=== PATIENT | male | born 1950 | race Caucasian/White ===

== ENCOUNTER 2024-12-22 09:45 | Outpatient (AMB) | payer MEDICARE, OTHER, SELFPAY ==
--- NOTE | 2024-12-22 09:49 | HO.NEPHOV_ITS ---
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 He has H/O IgA multiple myeloma and had treatment for it in [place]( trials X 2), which he has finished last year. He had follow up BMB and had been declared to be in remission. During the treatment in [place], he also had pneumonia with intra renal hemodynamic changes. He was thought to have vascular disease with narrowing of both carotid arteries.He also had episodes of AFib and has seen freight manager who felt he has CAD. His Hydration Plant Operator Dr Ambrose had initiated him on ACEI which he had been taking until recently when he developed hyperkalemia. He never had renal biopsy even when his light chains were high prior to initiation of his chemotherapeutic medication regimen couple of years ago. He does not take excess NSAID's. He has H/O hypertension and is on medications which is keeping his BP at goal. He has no hematuria, edema, dysuria , orthostatic symptoms. He denies SOB, PND, orthopnea, new skin rashes. His recent serum creatinine has been around 1.35 PFSH Medical History (Updated 12/22/24 @ 09:55 by Ben Ybarra MD) Sinusitis Rising PSA level Multiple myeloma Intercostal pain Hypertension Hyperlipidemia H/O diarrhea Great toe pain Atherosclerosis of both carotid arteries Surgical History (Updated 12/22/24 @ 09:54 by Ramona Franz MA) History of lung biopsy H/O colonoscopy Family History (Updated 12/22/24 @ 09:55 by Ramona Franz MA) Mother Diabetes Kidney disease Heart disease Brother Colon cancer Social History (Updated 12/22/24 @ 09:52 by Ramona Franz MA) Alcohol intake: current Patient Tobacco Use Status: Former Tobacco user Review of Systems Const All systems reviewed & are unremarkable except as noted in HPI and below Physical Exam Vital Signs: Last Vital Signs Pulse 47 L 12/22/24 09:57 BP 140/66 H 12/22/24 09:57 Pulse Ox 98 12/22/24 09:57 Oxygen Delivery Method Room Air 12/22/24 09:57 BMI result Body Mass Index 24.7 Const General: comfortable and no acute distress Orientation/consciousness: patient oriented x3 HEENT Head: Yes normocephalic Mouth: Normal oral and palatal mucosa present Eyes EOM: EOMs intact bilaterally Neck Neck: Yes supple Resp Auscultation: clear to auscultation bilaterally Cardio Jugular venous distension: no JVD Rate: regular rate GI Palpation (GI): Soft to palpation Auscultation: normal bowel sounds General: Yes no CVA tenderness Back/Spine/Pelvis Back: no CVA tenderness Skin General skin exam: no rashes or lesions noted Neuro General: patient oriented x3 and moves all extremities Extrem General: Yes no pedal edema Results Reviewed Nephrology Results: No Data to Display Assessment & Plan Assessment & Plan (1) CKD stage 3a, GFR 45-59 ml/min: Code(s): N18.31 - Chronic kidney disease, stage 3a Category: Medical (2) Hypertension: Code(s): I10 - Essential (primary) hypertension Category: Medical Qualifiers: Hypertension type: primary hypertension Qualified Code(s): I10 - Essential (primary) hypertension Plan Adal has CKD likely from multifactorial etiology. He has vascular disease with hypertension. 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 He was on ACEI but has been on hold due to high K( on hold since 10/13/24. His recent serum K is normal.) His PPI has been on hold since one week. He sparsely uses NSAID's and maintain good hydration. He has no CAD, CVA, CHF or PAD. I shall do Doppler of renal arteries. Last year he had SANTY with creatinine going up to 1.79 which has improved now( he had pneumonia- was on antibiotics & anti fungals)- he might have lost some GFR at that time. He does not take excess NSAID's and maintain good hydration. I have ordered F/U labs including cr clearance.His BP is well controlled on metoprolol and Amlodipine. He will benefit from SGLT2 i which I may consider initiating at the next follow up. Time spent reviewing [facility] records as well as other records, encounter and documentation included 70 minutes. Answered all questions. Orders: Orders Creatinine 6 Months I10 - Essential (primary) hypertension, N18.31 - Chronic kidney disease, stage 3a Electrolytes 6 Months I10 - Essential (primary) hypertension, N18.31 - Chronic kidney disease, stage 3a Creatinine Clearance Urine 24U 6 Months I10 - Essential (primary) hypertension, N18.31 - Chronic kidney disease, stage 3a Calcium 6 Months I10 - Essential (primary) hypertension, N18.31 - Chronic kidney disease, stage 3a Immunofixation, Random Urine 6 Months I10 - Essential (primary) hypertension, N18.31 - Chronic kidney disease, stage 3a Blood Urea Nitrogen 6 Months I10 - Essential (primary) hypertension, N18.31 - Chronic kidney disease, stage 3a Coding Level of Care Code New Pt Level 5 (27585) Diagnoses CKD stage 3a, GFR 45-59 ml/min N18.31 Primary hypertension I10 Hypertension type: primary hypertension
[2024-12-22 09:57] VITALS: BP 140/66; PULSE 47; O2SAT 98; BMI 24.7
== END 2024-12-22 10:44 | disposition home or self-care (01) ==
LOC: HO.HKAS 09:45
PROVIDERS: PCP Family Medicine; Referring Provider Family Medicine; Visit Provider Internal Medicine Nephrology
DX: I12.9 Hypertensive chronic kidney disease with stage 1 through stage 4 chronic kidney disease, or unspecified chronic kidney disease (principal); N18.31 Chronic kidney disease, stage 3a
CPT/HCPCS: 99205

== ENCOUNTER → 2024-12-22 09:45 | Outpatient (BNVA) | payer MEDICARE, OTHER, SELFPAY | PROVIDERS: PCP Family Medicine; Referring Provider Family Medicine; Visit Provider Internal Medicine Nephrology | DX: I12.9 Hypertensive chronic kidney disease with stage 1 through stage 4 chronic kidney disease, or unspecified chronic kidney disease (principal); N18.31 Chronic kidney disease, stage 3a | CPT/HCPCS: 99202 ==

== ENCOUNTER 2025-07-17 09:21 | Outpatient (REF) | payer MEDICARE, OTHER, SELFPAY ==
--- OUTSIDE RECORDS SUMMARY | 2025-07-17 09:28 | XMS_ITS | Encounter Summary ---
Author Organization [facility] Address [address] [place] [address] [place] [address] Phone Care Team Providers Care Oil Lease Operator Name Role Phone Christie Downing MD Unavailable [phone] Elham Jaimes RN Unavailable [email or web address] [email or web address] Mariann Morris RN Unavailable [phone] Julianne Bunn RN Unavailable [phone] Jeb Velázquez DO Primary Care Provider Cristin Ramsey RN Unavailable [phone] Elham Boyce RN Unavailable Lionel [email or web address] Meghan Díaz RN Unavailable [email or web address] [email or web address] Марина Maxwell RN Unavailable Magaly [email or web address] Encounter Details Date Type Department Care Team (Late st Contact Info) Description 02/16/2024 Procedure Pass [facility] [address] [place] [address] Social History Tobacco Use Types Packs/Day Years Used Date Smoking Tobacco: Never Smokeless Tobacco: Never Education Answer Date Recorded Are you interested in more education? Not on betty e 01/30/2023 Are you concerned about learning? Not on file 01/30/2023 No 01/30/2023 No 01/30/2023 Food Answer Date Recorded Within the past 6 months we worried whether our food would run out before we got money to buy more. Never True 02/12/2024 Within the past 6 months the food we bought just didn't last and we didn't have enough money to get more. Never True Residential Stability Answer Date Recor ded What is your housing situation today? I have ayesha montalvo 02/12/2024 How many times have you move d in the past 12 months? Zero (I did not move) 02/12/2024 Paying for Meds Answer Date Recorded Do you have trouble paying for medicines? No 02/12/2024 Paying Utility Bills Answer Date Record ed Do you have trouble paying your heating or elect ricity bill? No 02/12/2024 Transportation Answer Date Recorded Has the lack of transportati on kept you from medical appointments or from getting medications? No 02/12/2024 Digital Access Answer Date Recorded No 02/12/2024 Yes 02/12/2024 Do you have reliable internet access at home? Ye s 02/12/2024 Do you have a device (e.g., phone, tablet, computer) with a working camera? Yes 02/12/2024 Intimate Partner Violence Answer Date R ecorded Are you denied basic needs s uch as food, clothing, or medical care? No 02/11/2024 In the past 12 months have y ou been in a relationship with a person who hurts, threatens, or tries to control you? No 02/11/2024 Are you denied basic needs s uch as food, clothing, or medical care? No 02/11/2024 In the past 12 months have y ou been in a relationship with a person who hurts, threatens, or tries to control you? No 02/11/2024 Sex and Gender Information Value Date Recorded Sex Assigned at Male 11/12/2019 4:46 PM EST Legal Sex Male 10:15 AM EDT Gender Identity Male 11/12/2019 4:46 PM EST Sexual Orientation Straight 11/12/2019 4: 47 PM EST documented as of this encounter Plan of Treatment Upcoming Encounters Date Type Department Care Team (Late st Contact Info) Description 09/13/2025 9:00 AM EST Blood Draw Laboratory Services, [facility] [place] [address] [facility], 2nd [place] [address] Christie Downing MD [address] [place] [phone] [email or web address] [facility] 09/13/2025 10:00 AM EST Office Visit [facility] [address] [place] [phone] Jessica Alcantara PA-C [address] [place] [phone] 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 02/11/2024 02/10/2025 1:21 AM EDT CDiff-Risk 02/15/2024 02/15/2024 02/16/2024 9:02 AM EDT CDiff-Risk 02/17/2024 02/17/2024 02/18/2024 9:58 AM EDT CDiff-Risk 02/20/2024 02/20/2024 02/21/2024 9:53 AM EDT documented as of this encounter Care Teams Oil Lease Operator Relationship Specialty Start Date End Date Jeb Velázquez DO [address] [facility] [place] [address] PCP - General Family Medicine 04/22/23 Christie Downing MD [address] [place] [address] [email or web address] Primary Oncologist Medical Oncology 06/29/18 Elham Jaimes, RN [address] [place] [phone] [email or web address] Associate Infusion Nurse 08/12/22 Mariann Morris, KWAME [address] [place] [address] [email or web address] Research RN 12/09/22 Julianne Bunn, KWAME [address] [place] [address] [email or web address] Research RN 01/26/23 Cristin Ramsey RN [address] [place] [phone] [email or web address] Primary Infusion Nurse 12/16/23 Elham Boyce, KWAME [address] [place] [phone] [email or web address] Primary Infusion Nurse 06/26/24 Meghan Díaz, KWAME [address] [place] [address] [email or web address] Associate Infusion Nurse 06/26/24 Марина Maxwell, RN [address] [place] [phone] [email or web address] Associate Infusion Nurse 06/26/24 documented as of this encounter Additional Source Comments The information contained in this document represents components of the legal health record. It is not the complete legal health record.[facility]
--- OUTSIDE RECORDS SUMMARY | 2025-07-17 09:28 | XMS_ITS | Encounter Summary ---
Author Organization [facility] Address [address] [place] [address] [place] [phone] Phone Care Team Providers Care Radiographer Technologist Name Role Phone Christie Downing MD Unavailable [phone] Elham Jaimes RN Unavailable Fazal [email or web address] Mariann Morris RN Unavailable [phone] Julianne Bunn RN Unavailable [phone] Jeb Velázquez DO Primary Care Provider Cristin Ramsey RN Unavailable [phone] Elham Boyce RN Unavailable Lionel [email or web address] Meghan Díaz RN Unavailable ananda_[email or web address] [email or web address] Марина Maxwell RN Unavailable Magaly [email or web address] Encounter Details Date Type Department Care Team (Late st Contact Info) Description 02/16/2024 Procedure Pass [facility] Endoscopy Department [address] [place] [address] Social History Tobacco Use Types Packs/Day Years [...] EST Blood Draw Laboratory Services, [facility] [place] [address] [place] [address], 2nd [place] [address] Christie Downing MD [address] [place] [phone] [email or web address]. [facility] 09/13/2025 10:00 AM EST Office Visit [facility] [address] [place] [phone] Jessica Alcantara PA-C [address] [place] [address] [place] [address] Leela@[email or web address]. 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 02/11/2024 02/10/2025 1:21 AM EDT CDiff-Risk 02/15/2024 02/15/2024 02/16/2024 9:02 AM EDT CDiff-Risk 02/17/2024 02/17/2024 02/18/2024 9:58 AM EDT CDiff-Risk 02/20/2024 02/20/2024 02/21/2024 9:53 AM EDT documented as of this encounter Care Teams Radiographer Technologist Relationship Specialty Start Date End Date Jeb Velázquez DO 24 [facility] [place] [address] PCP - General Family Medicine 04/22/23 Christie Downing MD [address] [place] [phone] [email or web address] Primary Oncologist Medical Oncology 06/29/18 Elham Jaimes, RN [address] [place] [address] [email or web address] Associate Infusion Nurse 08/12/22 Mariann Morris, RN [address] [place] [address] [email or web address] Research RN 12/09/22 Julianne Bunn, KWAME [address] [place] [phone] [email or web address] Research RN 01/26/23 Cristin Ramsey RN [address] [place] [address] MANA@[email or web address] Primary Infusion Nurse 12/16/23 Elham Boyce, KWAME [address] [place] [phone] [email or web address] Primary Infusion Nurse 06/26/24 Meghan Díaz, KWAME [address] [place] [address] [email or web address] Associate Infusion Nurse 06/26/24 Марина Maxwell, RN [address] [place] [phone] [email or web address] Associate Infusion Nurse 06/26/24 documented as of this encounter Additional Source Comments The information contained in this document represents components of the legal health record. It is not the complete legal health record.[facility]
--- OUTSIDE RECORDS SUMMARY | 2025-07-17 09:28 | XMS_ITS | Encounter Summary ---
Author Organization [facility] Address [address] [place] [address] [place] [address] Phone Care Team Providers Care Screw Machine Hand Name Role Phone Christie Downing MD Unavailable [phone] Elham Jaimes RN Unavailable Fazal [email or web address] Mariann Morris RN Unavailable [phone] Julianne Bunn RN Unavailable [phone] Jeb Velázquez DO Primary Care Provider Cristin Ramsey RN Unavailable [phone] Elham Boyce RN Unavailable Lionel [email or web address] Meghan Díaz RN Unavailable ananda_[email or web address] [email or web address] Марина Maxwell RN Unavailable Magaly [email or web address] Encounter Details Date Type Department Care Team (Late st Contact Info) Description 02/09/2024 Procedure Pass [facility] [address] [place] [address] Social History Tobacco Use Types Packs/Day Years [...] PM EST documented as of this encounter Functional Status * Calculated C-SSRS Risk Score (Lifetime/Recent) Answer Date of Assessment Author No Risk Indicated 02/11/2024 10:29 PM EDT Hawa Saxena RN * Kane Suicide Severity Rating Scale (Screener/Recent Self-Report) Question Answer Date of Assessment Author 1. Wish to be (Past 1 Month) No 024 10:29 PM Hawa Luque RN 2. Non-Specific Active Suici emil Thoughts (Past 1 Month) No 02/11/2024 10:29 PM EDT Yolis Saxena RN 3. Active Suicidal Ideation with any Methods (Not Plan) Without Intent to Act (Past 1 Month) No 02/11/2024 10:29 PM Hawa Luque RN 4. Active Suicidal Ideation with Some Intent to Act, Without Specific Plan (Past 1 Month) No 02/11/2024 10:29 PM Hawa Luque RN 5. Active Suicidal Ideation with Specific Plan and Intent (Past 1 Month) No 02/11/2024 10:29 PM Hawa Luque RN 6. Suicidal Behavior (Lifetime) No 10:29 PM Hawa Luque RN documented as of this encounter Plan of Treatment Upcoming Encounters Date Type Department Care Team (Late st Contact Info) Description 09/13/2025 9:00 AM EST Blood Draw Laboratory Services, [address] 2[address] [place] [address] Christie Downing MD [address] [place] [phone] [email or web address] 09/13/2025 10:00 AM EST Office Visit [facility] [address] [place] [phone] Jessica Alcantara PA-C [address] [place] [phone] Leela@[email or web address]. [facility] 09/19/2025 1:20 PM EST Office Visit [facility] Internal Medicine [address] [place] [address] Stromy Allred PA-C [address] [place] [address] [email or web address] documented as of this encounter Visit Diagnoses Not on filedocumented in this encounter Additional Health Concerns Infection Onset Date Last Indicated Resolved Time CoV-Risk Comment:Per note documentation 02/09/2024 02/09/2024 9:10 AM EDT CDiff-Risk 02/10/2024 02/10/2024 02/10/2024 12:3 3 PM EDT VRE 02/11/2024 02/11/2024 02/10/2025 1:21 AM EDT CDiff-Risk 02/15/2024 02/15/2024 02/16/2024 9:02 AM EDT CDiff-Risk 02/17/2024 02/17/2024 02/18/2024 9:58 AM EDT CDiff-Risk 02/20/2024 02/20/2024 02/21/2024 9:53 AM EDT documented as of this encounter Care Teams Screw Machine Hand Relationship Specialty Start Date End Date Jeb Velázquez DO 24 [facility] [place] [address] PCP - General Family Medicine 04/22/23 Christie Downing MD [address] [place] [phone] [email or web address] Primary Oncologist Medical Oncology 06/29/18 Elham Jaimes RN [address] [place] [address] [email or web address]. [facility] Associate Infusion Nurse 08/12/22 Mariann Morris RN [address] [place] [address] [email or web address] Research RN 12/09/22 Julianne Bunn RN [address] [place] [address] [email or web address] Research RN 01/26/23 Cristin Ramsey RN [address] [place] [phone] [email or web address] Primary Infusion Nurse 12/16/23 Elham Boyce, KWAME [address] [place] [phone] [email or web address] Primary Infusion Nurse 06/26/24 Meghan Díaz, KWAME [address] [place] [address] [email or web address] Associate Infusion Nurse 06/26/24 Марина Maxwell, KWAME [address] [place] [phone] [email or web address] Associate Infusion Nurse 06/26/24 documented as of this encounter Additional Source Comments The information contained in this document represents components of the legal health record. It is not the complete legal health record.[facility]
--- OUTSIDE RECORDS SUMMARY | 2025-07-17 09:28 | XMS_ITS | Encounter Summary ---
Author Organization [facility] Address [address] [place] [address] [place] [address] Phone Care Team Providers Care Grief Counselor Name Role Phone Christie Downing MD Unavailable [phone] Elham Jaimes RN Unavailable Fazal [email or web address].[place].[facility] Mariann Morris RN Unavailable [phone] Julianne Bunn RN Unavailable [phone] Jeb Velázquez DO Primary Care Provider Cristin Ramsey RN Unavailable [phone] Elham Boyce RN Unavailable Lionel [email or web address].[facility] Meghan Díaz RN Unavailable ananda_archie [email or web address]@[email or web address].[facility] Марина Maxwell RN Unavailable Magaly [email or web address].[facility] Encounter Details Date Type Department Care Team (Late st Contact Info) Description 02/11/[address] [facility] Cross Sectional Interventional Radiology [address] [place] [address] Social History Tobacco Use Types Packs/Day Years [...] 10:29 PM EDT Hawa Saxena RN * [place] Suicide Severity Rating Scale (Screener/Recent Self-Report) Question Answer Date of Assessment Author 1. Wish to be (Past 1 Month) No 024 10:29 PM EDHawa Moreno RN 2. Non-Specific Active Suici emil Thoughts [...] 9:00 AM EST Blood Draw Laboratory Services, [address], 2nd [place] [address] Christie Downing MD [address] [place] [address] Mirtha@[email or web address]. [facility] 09/13/2025 10:00 AM EST Office Visit [facility] Cancers [address] [place] [phone] Jessica Alcantara PA-C [address] [place] [address] Leela@[facility] 09/19/2025 1:20 PM EST Office Visit [facility] Internal Medicine 40 [place] [address] Stormy Allred PA-C 40 [place] [address] [email or web address] documented as of this encounter Visit Diagnoses Not on filedocumented in this encounter Additional Health Concerns Infection Onset Date Last Indicated Resolved Time CoV-Risk Comment:Per note documentation 02/09/2024 02/09/2024 9:10 AM EDT VRE 02/11/2024 02/11/2024 02/10/2025 1:21 AM EDT CDiff-Risk 02/15/2024 02/15/2024 02/16/2024 9:02 AM EDT CDiff-Risk 02/17/2024 02/17/2024 02/18/2024 9:58 AM EDT CDiff-Risk 02/20/2024 02/20/2024 02/21/2024 9:53 AM EDT documented as of this encounter Care Teams Grief Counselor Relationship Specialty Start Date End Date Jeb Velázquez DO 24 [facility] [place] [address] PCP - General Family Medicine 04/22/23 Christie Downing MD [address] [place] [address] [email or web address] Primary Oncologist Medical Oncology 06/29/18 Elham Jaimes RN [address] [place] [address] Faviola@[facility]. [facility] Associate Infusion Nurse 08/12/22 Mariann Morris, KWAME [address] [place] [address] Ruddy@[email or web address] Research RN 12/09/22 Julianne Bunn, KWAME [address] [place] [address] Mame@[facility] Research RN 01/26/23 Cristin Ramsey RN [address] [place] [address] [email or web address]@[facility] Primary Infusion Nurse 12/16/23 Elham Boyce, KWAME [address] [place] [address] Steve@[email or web address] Primary Infusion Nurse 06/26/24 Meghan Díaz RN [address] [place] [address] [email or web address] Associate Infusion Nurse 06/26/24 Марина Maxwell, KWAME [address] [place] [address] Liss@[email or web address] Associate Infusion Nurse 06/26/24 documented as of this encounter Additional Source Comments The information contained in this document represents components of the legal health record. It is not the complete legal health record.[facility]
--- OUTSIDE RECORDS SUMMARY | 2025-07-17 09:28 | XMS_ITS | Encounter Summary ---
Author Organization [facility] Address [address] [place] [address] [place] [address] Phone Care Team Providers Care Power Originator Name Role Phone Christie Downing MD Unavailable [phone] Elham Jaimes RN Unavailable Fazal [email or web address].[facility] Mariann Morris RN Unavailable [phone] Julianne Bunn RN Unavailable [phone] Jeb Velázquez DO Primary Care Provider Cristin Ramsey RN Unavailable Elham Boyce RN Unavailable Lionel [email or web address].[facility] Meghan Díaz RN Unavailable ananda_archie [email or web address].[facility] Марина Maxwell RN Unavailable Magaly [email or web address] Encounter Details Date Type Department Care Team (Late st Contact Info) Description 02/09/2024 Procedure Pass [facility] 75 [place] [address] Social History Tobacco Use Types Packs/Day Years [...] 10:29 PM EDT Hawa Saxena RN * [place] Suicide Severity Rating Scale (Screener/Recent Self-Report) Question [...] 9:00 AM EST Blood Draw Laboratory Services, [address], 2nd [place] [address] Christie Downing MD [address] [place] [address] Mirtha@[email or web address]. [facility] 09/13/2025 10:00 AM EST Office Visit [facility] Cancers [address] [place] [phone] Jessica Alcantara PA-C [address] [place] [address] Leela@[facility]. [facility] 09/19/2025 1:20 PM EST Office Visit [facility] Internal Medicine 40 [place] [address] Stormy Allred PA-C 40 [place] [address] [email or web address] documented as of this encounter [...] documented as of this encounter Care Teams Power Originator Relationship Specialty Start Date End Date Jeb Velázquez DO 24 [facility] [place] [address] PCP - General Family Medicine 04/22/23 Christie Downing MD [address] [place] [address] Mirtha@[email or web address] Primary Oncologist Medical Oncology 06/29/18 Elham Jaimes RN [address] [place] [address] Faviola@[facility]. [facility] Associate Infusion Nurse 08/12/22 Mariann Morris RN 44 [place] [address] Ruddy@[facility] Research RN 12/09/22 Julianne Bunn RN 50 [place] [address] Mame@[facility] .[facility] Research RN 01/26/23 Cristin Ramsey RN [address] [place] [address] VANTATA@[email or web address] Primary Infusion Nurse 12/16/23 Elham Boyce, KWAME [address] [place] [address] Steve@[facility] Primary Infusion Nurse 06/26/24 Meghan Díaz, KWAME [address] [place] [address] [email or web address]@[email or web address] Associate Infusion Nurse 06/26/24 Марина Maxwell, KWAME [address] [place] [address] Liss@[facility] Associate Infusion Nurse 06/26/24 documented as of this encounter Additional Source Comments The information contained in this document represents components of the legal health record. It is not the complete legal health record.[facility]
--- OUTSIDE RECORDS SUMMARY | 2025-07-17 09:28 | XMS_ITS | Encounter Summary ---
Author Organization [facility] Address [address] [address] Phone Care Team Providers Care Naval Architect Specialist Name Role Phone Jeb Velázquez DO Primary Care Provider Christie Downing MD Unavailable [phone] Felipa Esqueda Unavailable [phone] Silvana Barton RN Unavailable [email or web address] Elham Jaimes RN Unavailable Fazal [email or web address] Marainn Morris RN Unavailable [phone] Julianne Bunn RN Unavailable [phone] Jeb Velázquez DO Primary Care Provider Cristin Ramsey RN Unavailable [phone] Elham Boyce RN Unavailable Lionel [email or web address] Meghan Díaz RN Unavailable ananda_archie [email or web address] Марина Maxwell RN Unavailable Magaly [email or web address].[facility] Encounter Details Date Type Department Care Team (Late st Contact Info) Description 12/16/2022 Documentation [facility] of Progression of Blood Cancers, [facility] [address] [place] [address], 7th [place] [address] Mariann Morris, RN [address] [place] [address] Ruddy@[email or web address] Social History Tobacco Use Types Packs/Day Years Used Date Smoking Tobacco: Never Smokeless Tobacco: Never Sex and Gender Information Value Date Recorded [...] 9:00 AM EST Blood Draw Laboratory Services, [address], 2nd [place] [address] Christie Downing MD [address] [place] [address] Mirtha@[email or web address]. [facility] 09/13/2025 10:00 AM EST Office Visit [facility] Cancers [address] [place] [phone] Jessica Alcantara PA-C [address] [place] [address] Leela@[facility]. [facility] 09/19/2025 1:20 PM EST Office Visit [facility] [place] Internal Medicine 40 [place] [address] Stormy Allred PA-C 40 [place] [address] [email or web address] documented as of this encounter Visit Diagnoses Not on filedocumented in this encounter Additional Health Concerns Infection Onset Date Last Indicated Resolved Time COVID-19 Comment:Sx onset 06/25/23 Test 9/26/06/25/2023 06/30/2023 07/15/2023 1:23 AM E DT CoV-Presumed Comment:New sx onset= 07/22 with COVID Ag + 07/27. 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 02/11/2024 02/10/2025 1:21 AM EDT CDiff-Risk 02/15/2024 02/15/2024 02/16/2024 9:02 AM EDT CDiff-Risk 02/17/2024 02/17/2024 02/18/2024 9:58 AM EDT CDiff-Risk 02/20/2024 02/20/2024 02/21/2024 9:5 3 AM EDT documented as of this encounter Care Teams Naval Architect Specialist Relationship Specialty Start Date End Date Jeb Velázquez DO 24 No [facility] [place] [address] PCP - General Family Medicine 06/29/18 04/21/23 Jeb Velázquez DO 24 No [facility] [place] [address] PCP - General Family Medicine 04/22/23 Christie Downing MD [address] [place] [address] [email or web address] Primary Oncologist Medical Oncology 06/29/18 Felipa Esqueda, [facility] [address] [place] [address] Jesse@[facility] Chain Saw Operator Hematology and Oncology 11/29/19 12/27/23 Silvana Barton, RN [address] [place] [address] AVIS@[email or web address] Primary Infusion Nurse 08/04/22 02/07/24 Elham Jaimes, KWAME [address] [place] [address] Faviola@[facility] Associate Infusion Nurse 08/12/22 Mariann Morris, KWAME [address] [place] [address] Ruddy@[facility] Research RN 12/09/22 Julianne Bnun RN [address] [place] [address] Mame@[facility] Research RN 01/26/23 Cristin Ramsey RN [address] [place] [address] MANA@[facility] Primary Infusion Nurse 12/16/23 Elham Boyce RN [address] [place] [address] Steve@[facility] Primary Infusion Nurse 06/26/24 Meghan Díaz, KWAME [address] [place] [address] [email or web address] Associate Infusion Nurse 06/26/24 Марина Maxwell, KWAME [address] [place] [address] Liss@[facility] Associate Infusion Nurse 06/26/24 documented as of this encounter Additional Source Comments The information contained in this document represents components of the legal health record. It is not the complete legal health record.[facility]
--- OUTSIDE RECORDS SUMMARY | 2025-07-17 09:28 | XMS_ITS | Encounter Summary ---
Author Organization [facility] Address [address] [place] [address] [place] [address] Phone Care Team Providers Care Wire Rope Fabrication Supervisor Name Role Phone Christie Downing MD Unavailable [phone] Elham Jaimes RN Unavailable Fazal [email or web address].[facility] Mariann Morris RN Unavailable [phone] Julianne Bunn RN Unavailable [phone] Jeb Velázquez DO Primary Care Provider Cristin Ramsey RN Unavailable [phone] Elham Boyce RN Unavailable Lionel [email or web address].[facility] Meghan Díaz RN Unavailable ananda_archie [email or web address]@[facility].[place] Марина Maxwell RN Unavailable Magaly [email or web address].[place].[facility] Encounter Details Date Type Department Care Team (Late st Contact Info) Description 02/17/2024 Procedure Pass [facility] Periop [address] [place] [address] Social History Tobacco Use Types Packs/Day Years [...] EST Blood Draw Laboratory Services, [facility] [place] [address] [place] [address], 2nd [place] [address] Christie Downing MD [address] [place] [address] Mirtha@[facility]. [facility] 09/13/2025 10:00 AM EST Office Visit [facility] Blood Cancers 450 [place] [phone] Jessica Alcantara PA-C [address] [place] [address] [place] [address] Leela@[facility]. 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 02/11/2024 02/10/2025 1:21 AM EDT CDiff-Risk 02/17/2024 02/17/2024 02/18/2024 9:58 AM EDT CDiff-Risk 02/20/2024 02/20/2024 02/21/2024 9:53 AM EDT documented as of this encounter Care Teams Wire Rope Fabrication Supervisor Relationship Specialty Start Date End Date Jeb Velázquez DO 24 [facility] [place] [address] PCP - General Family Medicine 04/22/23 Christie Downing MD [address] [place] [address] Mirtha@[facility] Primary Oncologist Medical Oncology 06/29/18 Elham Jaimes, RN [address] [place] [address] Faviola@[facility] Associate Infusion Nurse 08/12/22 Mariann Morris, RN [address] [place] [address] Ruddy@[facility] Research RN 12/09/22 Julianne Bunn, KWAME [address] [place] [address] Mame@[facility] Research RN 01/26/23 Cristin Ramsey RN [address] [place] [address] MANA@[facility] Primary Infusion Nurse 12/16/23 Elham Boyce, KWAME [address] [place] [address] Steve@[facility] Primary Infusion Nurse 06/26/24 Meghan Díaz, RN [address] [place] [address] [email or web address] Associate Infusion Nurse 06/26/24 Марина Maxwell, KWAME [address] [place] [address] Liss@[email or web address] Associate Infusion Nurse 06/26/24 documented as of this encounter Additional Source Comments The information contained in this document represents components of the legal health record. It is not the complete legal health record.[facility]
--- OUTSIDE RECORDS SUMMARY | 2025-07-17 09:28 | XMS_ITS | Encounter Summary ---
Author Organization [facility] Address [address] [place] [address] [place] [address] Phone Care Team Providers Care Psychiatric Assistant Name Role Phone Christie Downing MD Unavailable [phone] Elham Jaimes RN Unavailable Fazal [email or web address] Mariann Morris RN Unavailable [phone] Julianne Bunn RN Unavailable [phone] Jeb Velázquez DO Primary Care Provider Cristin Ramsey RN Unavailable [phone] Elham Boyce RN Unavailable Lionel [email or web address] Meghan Díaz RN Unavailable ananda_archie [email or web address] Марина Maxwell RN Unavailable Magaly [email or web address].[facility] Encounter Details Date Type Department Care Team (Late st Contact Info) Description 02/17/2024 Procedure Pass [facility] 75 [place] [address] Social History Tobacco Use Types Packs/Day Years [...] EST Blood Draw Laboratory Services, [facility] [place] 450 [facility], 2nd [place] [address] Christie Downing MD [address] [place] [address] Mirtha@[email or web address]. [facility] 09/13/2025 10:00 AM EST Office Visit [facility] Blood Cancers [address] [place] [phone] Jessica Alcantara PA-C [address] [place] [address] Leela@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 02/11/2024 02/10/2025 1:21 AM EDT CDiff-Risk 02/17/2024 02/17/2024 02/18/2024 9:58 AM EDT CDiff-Risk 02/20/2024 02/20/2024 02/21/2024 9:53 AM EDT documented as of this encounter Care Teams Psychiatric Assistant Relationship Specialty Start Date End Date Jeb Velázquez DO 24 [facility] [place] [address] PCP - General Family Medicine 04/22/23 Christie Downing MD [address] [place] [address] Mirtha@[facility] Primary Oncologist Medical Oncology 06/29/18 Elham Jaimes, RN [address] [place] [address] Faviola@[facility] Associate Infusion Nurse 08/12/22 Mariann Morris, RN [address] [place] [address] Ruddy@[facility] Research RN 12/09/22 Julianne Bunn, RN [address] [place] [address] Mame@[facility] Research RN 01/26/23 Cristin Ramsey RN [address] [place] [address] MANA@[facility] Primary Infusion Nurse 12/16/23 Elham Boyce, KWAME [address] [place] [address] Steve@[facility] Primary Infusion Nurse 06/26/24 Meghan Díaz, RN [address] [place] [address] [email or web address] Associate Infusion Nurse 06/26/24 Марина Maxwell, RN [address] [place] [address] Liss@[facility] Associate Infusion Nurse 06/26/24 documented as of this encounter Additional Source Comments The information contained in this document represents components of the legal health record. It is not the complete legal health record.[facility]
--- OUTSIDE RECORDS SUMMARY | 2025-07-17 09:28 | XMS_ITS | Encounter Summary ---
Author Organization [facility] Address [address] [place] [address] [place] [address] Phone Care Team Providers Care Marketing Sales Manager Name Role Phone Christie Downing MD Unavailable [phone] Elham Jaimes RN Unavailable Fazal [email or web address].[email or web address] Mariann Morris RN Unavailable [phone] Julianne Bunn RN Unavailable [phone] Jeb Velázquez DO Primary Care Provider Cristin Ramsey RN Unavailable [phone] Elham Boyce RN Unavailable Lionel [email or web address].[email or web address] Meghan Díaz RN Unavailable ananda_archie [email or web address]@[email or web address] Марина Maxwell RN Unavailable Magaly [email or web address] Encounter Details Date Type Department Care Team (Late st Contact Info) Description 02/24/2024 Procedure Pass [facility] Echocardiography [address] [place] [address] Social History Tobacco Use Types Packs/Day Years [...] EST Blood Draw Laboratory Services, [facility] [place] [address] [place] [address], 2nd [place] [address] Christie Downing MD [address] [place] [address] Mirtha@[email or web address]. [facility] 09/13/2025 10:00 AM EST Office Visit [facility] Blood Cancers [address] [place] [phone] Jessica Alcantara PA-C 44 [place] [address] Leela@[facility]. 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 [place] [address] PCP - General Family Medicine 04/22/23 Christie Downing MD [address] [place] [address] Mirtha@[email or web address] Primary Oncologist Medical Oncology 06/29/18 Elham Jaimes RN [address] [place] [address] Faviola@[facility]. [facility] Associate Infusion Nurse 08/12/22 Mariann Morris, RN [address] [place] [address] Ruddy@[facility] Research RN 12/09/22 Julianne Bunn, RN 50 [place] [address] Mame@[facility] Research RN 01/26/23 Cristin Ramsey RN [address] [place] [address] MANA@[facility] Primary Infusion Nurse 12/16/23 Elham Boyce, KWAME [address] [place] [address] Steve@[facility] Primary Infusion Nurse 06/26/24 Meghan Díaz, KWAME [address] [place] [address] ishaan@[facility] Associate Infusion Nurse 06/26/24 Марина Maxwell, RN [address] [place] [phone] Liss@[facility] Associate Infusion Nurse 06/26/24 documented as of this encounter Additional Source Comments The information contained in this document represents components of the legal health record. It is not the complete legal health record.[facility]
--- OUTSIDE RECORDS SUMMARY | 2025-07-17 09:28 | XMS_ITS | Clinical Summary ---
Author Organization [address] [place] [address] Address [address] [place] [address] Phone Care Team Providers Care Aws Solution Architect Name Role Phone Harris Lilly MD Primary Care Provider [phone] Allergies Active Allergy Reactions Criticality Noted Date Comments Cephaeline 03/24/2024 Medications atorvastatin (LIPITOR) 10 mg tablet Take 1 Tablet by mouth daily. Active Lactobacillus acidophilus (PROBIOTIC ACIDOPHILUS ORAL) Take by mouth. Active magnesium oxide (MAG-OX) 400 mg magnesium tablet Take by mouth daily. Active niacin 500 mg tablet Take 1 Tablet by mouth daily (with breakfast). Active cyanocobalamin (VITAMIN B-12) 1,000 mcg tablet Take 1 Tablet by mouth daily. Active metoprolol succinate (TOPROL-XL) 50 mg 24 hr tablet TAKE 1 TABLET BY MOUTH 1 TIME EACH DAY. DO NOT CRUSH OR CHEW. 90 tablet 3 04/13/20 25 Active amLODIPine (NORVASC) 10 mg tablet TAKE 1 TABLET BY MOUTH EVERY DAY 90 tablet 3 05/10/20 25 Active apixaban (Eliquis) 5 mg tablet TAKE 1 TABLET BY MOUTH TWICE A DAY 180 tablet 3 06/12/20 25 Active omeprazole (PriLOSEC) [address] capsule Take 1 capsule (20 mg total) by mouth 1 (one) time each day. 06/14/20 25 Active lisinopriL (PRINIVIL,ZESTR IL) 5 mg tablet TAKE 1 TABLET BY MOUTH EVERY DAY 90 tablet 1 09/16/20 025 Discontinued(Di scontinued by another clinician) acyclovir (ZOVIRAX) 400 mg tablet Take 1 Tablet by mouth daily. 025 Discontinued atovaquone (MEPRON) 750 mg/5 mL suspension Take 5 mL by mouth daily. 025 Discontinued omeprazole OTC (PriLOSEC OTC) 20 mg EC tablet Take 1 Tablet by mouth daily. 025 Discontinued(Di scontinued by another clinician) Active Problems Problem Noted Date Diagnosed Date Atherosclerosis of both carotid arteries 024 Atrial fibrillation with RVR (CMS/HCC V24, CMS/H CC V28) 03/23/2024 Overview (09/15/2024): Last Assessment & Plan: He had 2 episodes of atrial fibrillation in the setting of recovering bacteremia and background of multiple myeloma. He noted to chest pressure and facial flush with A-fib. Heart rate was not that fast. I agree with anticoagulation. Will increase metoprolol dosage to 50 mg daily, especially giving uncontrolled hypertension. I will schedule a nuclear perfusion stress test. Assessment & Plan (06/30/2025 11:13 AM EDT): Patient has a history of paroxysmal atrial fibrillation in the setting of acute illness. EKG done in the office today shows sinus bradycardia with a well- controlled rate of 51 bpm. Patient denies perceived recurrence. He remains on Eliquis for stroke risk reduction for [id number] score of 3. Continue to monitor for abnormal bruising or bleeding. Continue metoprolol as prescribed. Assessment & Plan (12/27/2024 12:23 PM EDT): Triggered by underlying infections, and GI symptoms. He has not had a recurrent A-fib and is on low-dose metoprolol with normal heart rate. Will continue current regimen. He is due to follow-up with [facility] oncology service next month and we will follow-up the plan. Orders: ECG 12 lead HLD (hyperlipidemia) 03/23/2024 Assessment & Plan (06/30/2025 10:35 AM EDT): Last lipid panel reviewed and under good control with an LDL of 70. Continue atorvastatin as prescribed. HTN (hypertension) 03/23/2024 Overview (09/15/2024): Last Assessment & Plan: He was on lisinopril 20 mg daily prior to recent hospital stay for bacteremia due to SANTY. Currently, hypertension control has been suboptimal despite on amlodipine. His renal function has mostly recovered. I will slowly resume lisinopril starting at 5 mg daily. Assessment & Plan (06/30/2025 10:36 AM EDT): Blood pressure is reasonably controlled in the office today at 138/66. Continue amlodipine and metoprolol as prescribed. Assessment & Plan (12/27/2024 12:23 PM EDT): Has been well-controlled with current regimen. Will continue to hold off lisinopril. Palpitations 03/23/2024 Encounters Date Type Department Care Team Description 06/30/2025 10:40 AM EDT Office Visit [facility] [address] [place] [id number] Bisi Monae, WATSON Atrial fibrillation with RVR (CMS/HCC V24, CMS/HCC V28) (Primary Dx); Primary hypertension; Hyperlipidemia, unspecified hyperlipidemia type from Last 3 Months Immunizations Immunization Administration Dates Next Due Moderna SARS-CoV-2 COVID-19, mRNA, LNP-S, preservative free 11/22/2021,06/05/2021,12/29/2020,2020 Surgical History Surgery Date Site/Laterality Comments OTHER SURGICAL HISTORY 03/18/2023 PROCEDURE: HISTORY OTHER; COMMENT: COLONOSCOPY Medical History Medical History Date Comments Intercostal pain DX:Intercostal pain Monoclonal gammopathy DX:Monoclo nal gammopathy Rising PSA level DX:Rising PSA l evel SANTY (acute kidney injury) (CMS/HCC V24) DX:SANTY (acute kidney injury) ([facility]) Social History Tobacco Use Types Packs/Day Years Used Date Smoking Tobacco: Never Smokeless Tobacco: Never Alcohol Use Standard Drinks/Week Comments Not Currently 0 (1 standard drink = 0.6 oz pur e alcohol) Sex and Gender Information Value Date Recorded Sex Assigned at Male 09/23/2024 3:44 PM EST Legal Sex Male 7:47 AM EST Gender Identity Male 09/23/2024 3:44 PM EST Sexual Orientation Straight 09/23/2024 3: 44 PM EST Obstetrics History Last Filed Vital Signs Vital Sign Reading Time Taken Comments Blood Pressure 138/66 06/30/2025 10:22 AM EDT Pulse 51 06/30/2025 10:22 AM EDT Temperature - - Respiratory Rate - - Oxygen Saturation 99% 06/30/2025 10:22 AM EDT Inhaled Oxygen Concentration - - Weight 82.6 kg (182 lb) 06/30/2025 10:22 AM EDT Height 175.3 cm (5' 9 ) 06/30/2025 10:22 AM EDT Body Mass Index 26.88 06/30/2025 10:22 AM EDT Plan of Treatment Health Maintenance Due Date Last Done Comments Colorectal Cancer Screening: Colonoscopy 1950 [place] Risk Assessment 11/03/2023 Medicare Annual Wellness Visit 11/03/2023 Social Influencers of Health Screening 11/03/2023 Cholesterol Screening (Lipid Panel) 01/29/2024 01/28/2019 Depression Screening 10/05/2024 Influenza Vaccine (#1) 2025 , 07/14/2023, 07/18/2022, Additional history exists Hypertension/CHF/CAD Annual BMP Blood Test 06/14/2026 06/14/2025, 03/29/2025, 01/04/2025, Additional history exists DTaP,Tdap,and Td Vaccines (2 - Td or Tdap) 05/17/2033 05/17/2023 Pneumococcal Vaccine: 50+ Years Completed 10/08/2018, 07/14/2018 Zoster Vaccines Completed 11/05/2018, 2018 Hepatitis A Vaccines Aged Out 12/30/2018, 05/27/20 18 No longer eligible based on patient's age to complete this topic Hepatitis C Screening Completed 07/04/2022, 022 RSV Immunization Adult Patients Completed 09/02/2023 COVID-19 Vaccine Completed 12/15/2024, 03/2024, 01/29/2024, Additional history exists HIB Vaccines Aged Out No longer eligi ble based on patient's age to complete this topic HPV Vaccines Aged Out No longer eligi ble based on patient's age to complete this topic Hepatitis B Vaccines Aged Out No long er eligible based on patient's age to complete this topic IPV Vaccines Aged Out No longer eligi ble based on patient's age to complete this topic MMR Vaccines Aged Out No longer eligi ble based on patient's age to complete this topic Meningococcal ACWY Vaccine Aged Out N o longer eligible based on patient's age to complete this topic Meningococcal B Vaccine Aged Out No l onger eligible based on patient's age to complete this topic RSV Immunization Patients Under 20 months Aged Out No longer eligible based on patient's age to complete this topic Varicella Vaccines Aged Out No longer eligible based on patient's age to complete this topic Procedures Procedure Name Priority Date/Time Associated Diagnosis Comments ECG 12-LEAD Routine 06/30/2025 11:14 AM EDT Atrial fibrillation with RVR (CMS/HCC V24, CMS/HCC V28) ANNUAL BMP BLOOD TEST Routine 05/04/2024 HEPATITIS C SCREENING Routine 07/04/2022 from Last 3 Months or Most Recently Relevant to Health Maintenance Results * ECG 12 lead (06/30/2025 11:14 AM EDT) Ventricular Rate ECG 51 BPM GEMUSE Atrial Rate 51 BPM GEMUSE P-R Interval 176 ms GEMUSE QRS Duration 90 ms GEMUSE Q-T Interval 424 ms GEMUSE QTc 390 ms GEMUSE P Wave [place] 29 degrees GEMUSE R [place] -18 degrees GEMUSE T [place] 22 degrees GEMUSE ECG Interpretation Sinus bradycardia Otherwise normal ECG When compared with ECG of 27-DEC-2024 09:26, No significant change was found Confirmed by OH MORRIS ([id number]) on 06/30/2025 4:13:16 PM GEMUSE 06/30/2025 10:3 0 AM EDT 06/30/2025 4:13 PM EDT Bisi Letha PHOTOGRAPHIC PRINTER ECG ORDERABLES Edited Result - Final GEMUSE * Hepatitis C Screening (07/04/2022) Hepatitis C Screening Abstracted Historical Provider MD HEALTH MAINTENANCE Final Result from Last 3 Months or Most Recently Relevant to Health Maintenance Insurance MEDICARE [facility] Care Teams Aws Solution Architect Relationship Specialty Start Date End Date Harris Lilly MD [address] [place] [address] [place] [address] PCP - General Internal Medicine 06/30/25
--- OUTSIDE RECORDS SUMMARY | 2025-07-17 09:28 | XMS_ITS | Encounter Summary ---
Author Organization [facility] Address [address] [place] [id number] Phone Care Team Providers Care Supply Teacher Name Role Phone Jeb Velázquez DO Primary Care Provider Christie Downing MD Unavailable [phone] Felipa Esqueda Unavailable [phone] Silvana Barton RN Unavailable [email or web address] Elham Jaimes RN Unavailable [email or web address] Mariann Morris RN Unavailable [phone] Julianne Bunn RN Unavailable [phone] Jbe Velázquez DO Primary Care Provider Cristin Ramsey RN Unavailable [phone] Elham Boyce RN Unavailable [email or web address] Meghan Díaz RN Unavailable [email or web address] Марина Maxwell RN Unavailable [email or web address] Reason for Visit * Reason Comments Medication Refill Encounter Details Date Type Department Care Team (Late st Contact Info) Description 10/04/2021 Refill [facility] of [facility], [facility] [place] [address] [place] [address], [address] [place] [address] Shanna Qureshi NP [address] [place] [id number] [email or web address] Medication Refill Social History Tobacco Use Types Packs/Day Years [...] 9:00 AM EST Blood Draw Laboratory Services, [address], [address] [place] [address] Christie Downing MD [address] [place] [phone] [email or web address] 09/13/2025 10:00 AM EST Office Visit [facility] Blood Cancers [address] [place] [phone] Jessica Alcantara PA-C [address] [place] [phone] [email or web address] 09/19/2025 1:20 PM EST Office Visit [facility] [place] [facility] [address] [place] [address] Stormy Allred PA-C [address] [place] [address] [email or web address] documented as of this encounter Visit Diagnoses Not on filedocumented in this encounter Additional Health Concerns Infection Onset Date Last Indicated Resolved Time COVID-19 Comment:Sx onset 06/25/23 Test 06/30/23 06/25/2023 06/30/2023 07/15/2023 1:23 AM E DT CoV-Presumed [...] documented as of this encounter Care Teams Supply Teacher Relationship Specialty Start Date End Date Jeb Velázquez DO [address] [facility] [place] [address] PCP - General Family Medicine 06/29/18 04/21/23 Jeb Velázquez DO [address] [facility] [place] [address] PCP - General Family Medicine 04/22/23 Christie Downing MD [address] [place] [phone] [email or web address] Primary Oncologist Medical Oncology 06/29/18 Felipa Esqueda, [facility] [address] [place] [address] [email or web address] Direct Support Staff Hematology and Oncology 11/29/19 12/27/23 Silvana Barton, RN [address] [place] [address] [email or web address] Primary Infusion Nurse 08/04/22 02/07/24 Elham Jaimes, KWAME [address] [place] [phone] [email or web address] Associate Infusion Nurse 08/12/22 Mariann Morris, KWAME [address] [place] [address] [email or web address] RN 12/09/22 Julianne Bunn RN [address] [place] [phone] [email or web address] RN 01/26/23 Cristin Ramsey RN [address] [place] [phone] [email or web address] Primary Infusion Nurse 12/16/23 Elham Boyce RN [address] [place] [phone] [email or web address] Primary Infusion Nurse 06/26/24 Meghan Díaz, KWAME [address] [place] [phone] [email or web address] Associate Infusion Nurse 06/26/24 Марина Maxwell, KWAME [address] [place] [phone] [email or web address] Associate Infusion Nurse 06/26/24 documented as of this encounter Additional Source Comments The information contained in this document represents components of the legal health record. It is not the complete legal health record.[facility]
--- OUTSIDE RECORDS SUMMARY | 2025-07-17 09:29 | XMS_ITS | Clinical Summary ---
Author Organization [facility] Address [address] [place] [phone] Phone Care Team Providers Care Supervisor Production Name Role Phone Christie Downing MD Unavailable Elham Jaimes RN Unavailable [email or web address] [email or web address] Mariann Morris RN Unavailable [phone] Julianne Bunn RN Unavailable [phone] Jeb Velázquez DO Primary Care Provider Cristin Ramsey RN Unavailable [phone] Elham Boyce RN Unavailable [email or web address] [email or web address] Meghan Díaz RN Unavailable [email or web address] Марина Maxwell RN Unavailable Magaly [email or web address] Allergies Active Allergy Reactions Criticality Noted Date Comments Cefepime Itching,Swelling,Oth er (See Comments) Medium 02/19/2024 About 1 wk after starting cefepime and in setting of SANTY patient developed LE edema, facial pruritus w/o obvious rash, and a confusion felt like I had several cocktails . These symptoms improved 1 day after discontinuation. Tolerated zosyn. Medications calcium-vitamin D3-vitamin K (VIACTIV) 1,250 mg (500 mg elemental)-500 unit-40 mcg Chew Take 1 tablet by mouth daily. Active magnesium oxide (MAG-OX) 400 mg (241.3 mg elemental) tablet Take 400 mg by mouth daily. Active vitamin B complex (B COMPLEX ORAL) Take by mouth daily. Active cyanocobalamin, vitamin B-12, 1,[address] sub[address]ual [address] under the tongue. Active atorvastatin (LIPITOR) 10 MG tablet Take 1 tablet by mouth every morning. 04/09/2023 Active amLODIPine (NORVASC) 10 MG tablet Take 1 tablet (10 mg total) by mouth daily. 30 tablet 2 02/25/2024 Active niacin 500 MG tablet Take 500 mg by mouth 2 (two) times a day with meals. Active apixaban (ELIQUIS) 5 mg tablet Take 5 mg by mouth 2 (two) times a day. Active metoprolol succinate (TOPROL-XL) 50 MG 24 hr tablet Take 50 mg by mouth daily. 04/12/2024 Active omeprazole (PRILOSEC) 20 MG capsule Take 1 capsule (20 mg total) by mouth every morning. 90 capsule 3 06/14/2025 Active Active Problems Patient Care Coordination No te Formatting of this note migh t be different from the original. Quarterly Zometa, last given 12/15/23 IVIG last given 12/15/23 Problem Noted Date Diagnosed Date Atrial fibrillation 02/24/2024 Assessment & Plan (02/24/2024 2:55 PM EDT): Patient developed new atrial fibrillation with RVR (HR to 140s) on 02/23. Patient remained asymptomatic. Improved with metoprolol 10mg IV. -- f/u TTE 02/23 -- Start metoprolol 6.25 q6hrs -- Telemetry monitoring Peripheral edema 02/18/2024 Assessment & Plan (02/24/2024 2:53 PM EDT): Patient developed 2+ b/l LE edema and >10 lbs weight gain from admission. Suspect related to fluid resuscitation (net positive 5.2L) and possibly r/t cefepime reaction. Edema starting to improve since 02/18 spontaneously -- I/O -- Avoiding diuresis with SANTY for now SANTY (acute kidney injury) 02/14/2024 Assessment & Plan (02/24/2024 2:53 PM EDT): Elevated Cr as of 02/13 (baseline ~1.0). FeNA = 0.4% on 02/14 c/w pre-renal SANTY. UA with increased urine protein. Renal c/s. Renal U/S negative for obstruction. Given UA renal suspected ATN, potentially from hypovolemia (diarrhea), previous ambisome, IV contrast, or vanc. Cr gradually improving. -- Renal consulted, appreciate recs -- Daily BMP -- Renally dose medications, avoid contrast and nephrotoxic agents. Chronic health problem 02/09/2024 Assessment & Plan (02/24/2024 2:53 PM EDT): #Peripheral neuropathy Numbness of bilateral soles attributed to myeloma treatment. Continue home B complex vitamin and vitamin B12. Also notes new mild bilateral tingling to fingertips/hands 02/15, equal bilaterally. Possibly from low potassium, repleting as in separate section. #Insomnia Melatonin, Trazodone PRN. #HTN HOLD home lisinopril 20mg daily iso #SANTY #HLD Continue atorvastatin 10mg daily. #GERD Home Prilosec 20mg daily replaced with Nexium per [facility] formulary. #Chronic Hypophosphatemia and hypoMg Continue home K-Phos tablet and mgOx daily. Additional IV repletion PRN Enterocolitis 02/09/2024 Assessment & Plan (02/24/2024 2:52 PM EDT): Presented to clinic 02/08 with a new fever in the setting of 2.5 weeks of non- bloody diarrhea (~3 episodes daily) with abdominal cramping following a weeklong trip to [place]. Managed with Metamucil at home. Abdomen non-tender. CT A/P notable for mild enterocolitis, possibly infectious vs inflammatory. Started on cefepime/vanc/flagyl. Stool infectious workup negative including C.diff x2, Cryptosporidium antigen, CMV, Giardia antigen, and fecal leukocyte examination. Initially discontinued Flagyl 02/10 for improvement in diarrhea, but with increase in output continued anaerobic/gram negative coverage. Ongoing mild diarrhea, improved with antidiarrheals. Patient developed pruritus and insomnia with vivid dreams 02/22 which he attributed to flagyl. Per ID, ok to discontinue 02/23. -- f/u viral stool PCR panel -- Consider outpatient GI follow up if ongoing symptoms and above workup negative for possible scope w/ CMV and amyloid testing. Referral placed in discharge module. -- Continue imodium, lomotil PRN. -- Continue cipro until outpatient follow-up with ID (planned for 03/09). Per ID, ok to discontinue flagyl. RLL pneumonia 02/09/2024 Assessment & Plan (02/24/2024 2:53 PM EDT): Presented to clinic 02/08 for C19 teclistamab but developed chills and low-grade fever, sent to ED for workup. Way-cultured, started on Cefepime/Vanc/Azithro. CT A/P showed e/o mild #enterocolitis, as well as incidental finding of a RLL consolidative PNA. CTPE confirmed a RLL consolidation with reverse halo sign c/f pulmonary infarct vs organizing PNA vs fungal PNA. Reviewed with radiology who felt highest suspicion is for fungal PNA given surrounding GGOs. ID consulted, started on ambisome. Underwent IR guided RLL bx 02/11, which revealed acute and organizing pneumonia with neutrophil-rich fibrinous intra-alveolar exudate and interstitial pneumonitis most consistent with a bacterial pneumonia. After the repeat chest CT on 02/15 showed worsening, he underwent navigational bronchoscopy with BAL on 02/16, but the tissue was from the airways. BAL micro was negative with the exception of one of three BAL GMs being positive at 0.81. Karius testing positive for pseudomonas. Course complicated by #SANTY, he was switched from ambisome to posaconazole which was discontinued after Karius assay returned. He was also treated with cefepime (02/08-02/17), then piperacillin-tazobactam (02/18-02/20), then ciprofloxacin (02/20-present). -- ID and Pulm following -- Pending studies: -- BAL and biopsy 02/16: cytology, pathology, gram stain and culture, Fungal culture, mycobacterial culture, Mucor PCR -- IR bx 02/11: bacterial cx, fungal cx, nocardia cx, legionella cx, mycobacterial cx -- Continue cipro until outpatient follow-up ID appointment Antimicrobials: Azithromycin: 02/09-02/13 Cefepime: 02/08 - 02/17 Vancomycin: 02/08 - 02/09 Flagyl 02/09-02/10, 02/12-02/17, 02/20 - 02/23 Cipro 02/20 - present Ambisome 02/10 - 02/12 Posaconazole 02/13 - 02/19 Zosyn 02/18 - 02/20 Hypogammaglobulinemia 09/18/2022 Smoldering multiple myeloma 08/26/2022 Assessment & Plan (02/24/2024 2:48 PM EDT): 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 Continued to rise in May 2022; PET without FDG avidity to confirm myeloma progression. Initiated treatment with teclistamab on protocol 22-154 (C1D1 07/28/22) and has since received 18 cycles. Most recent BMBx 07/14/23 showed MRD negativity and most recent SPEP/FLC 02/09/24 showed IgA and FLC <assay. Was planned for C19 on 02/08 but treatment deferred after presented with low-grade fever and chills and admitted with possible pneumonia and colitis Primary Onc: Dr. Christie Downing -- Continue ppx acyclovir and mepron -- HOLD monthly teclistamab while undergoing infectious workup/treatment Chronic health problem 07/27/2022 Autologous donor of stem cells 12/08/2019 Asymptomatic multiple myeloma 08/23/2018 Assessment & Plan (07/31/2022 1:16 PM EDT): ACTIVE Diagnosed with high risk IgA Lambda SMM in January 2019, treated with IxaRD in February 2021 for rising M spike and IgA. Continued to rise in May 2022, PET without FDG avidity to confirm myeloma progression. Thus, now admitted for priming doses of Teclistamab, a bispecific antibody that binds CD3 receptor complex on T cells and BCMA on plasma cells. Patient received premeds with Dex, Benadryl and Tylenol 1 hr prior to dosing. Received Teclistamab SC 0.06 mg/kg on day 1 and received step-up dose 2 Teclistamab 0.3 mg/kg on day 3. CRP rising but otherwise no clinical evidence of CRS to date. PI: Christie Downing and Jimbo Pearce -- Daily CRP, IL6,ferritin,fibrinogen, coags per PI during hospitalization -- Will need toci dosed if gr2 CRS, discuss with PI -- Daily ICE and baseline neuro exam -- If fever, or signs of CRS cannot dose day 3 until >12 hours after last fever (or other sx), page PI to discuss. -- Discharge on day 5 (does not need to be full 48 hours from time of dosing) . Must be afebrile without evidence of CRS for > 8 hours Resolved Problems Problem Noted Date Diagnosed Date Resolved Date Pruritus 02/19/2024 02/24/2024 Assessment & Plan (02/24/2024 2:53 PM EDT): 02/16 About 1 wk after starting cefepime and in setting of SANTY patient developed LE edema, facial pruritus w/o obvious rash, and a confusion felt like I had several cocktails . These symptoms improved 1 day after discontinuation. Given time course this could have been a cefepime allergic reaction and cefepime neurotoxicity. Cefepime added to allergy list, tolerated zosyn. Abnormal finding on imaging 02/10/2024 02/11/2024 Assessment & Plan (02/10/2024 3:24 PM EDT): CTPE for #PNA workup showed no evidence of PE, but suspicion of segmental and subsegmental filling defects in right lower lobe pulmonary vein, which may be flow-related or nonocclusive pulmonary venous thrombosis per radiology report. Discussed with radiology attending 02/09, who reviewed imaging and felt finding most likely represents flow-related filing defects iso PNA given that finding is located in the same area as presumed fungal PNA of RLL. No further workup warranted at this time. Elevated bilirubin 02/10/2024 Assessment & Plan (02/16/2024 4:55 PM EDT): Tbili 1.7 on 02/09, indirect predominant. No recent pRBC transfusions. H/H at baseline. No schistocytes on diff, remainder of hemolysis labs pending. Per chart review, patient has had transient indirect hyperbilirubinemia in the past so may have underlying Gilbert's. Haptoglobin normal. Tbili resolved to normal 02/15. Smoldering multiple myeloma 07/27/2022 05/13/2023 Cytopenia 12/12/2021 12/12/2021 Encounters Date Type Department Care Team Description 06/14/2025 12:45 PM EDT - 06/14/2025 11:59 PM EDT Hospital Encounter [facility] [address] [place] [address] Christie Downing MD Discharge Disposition: Home or Self Care 06/14/2025 8:53 AM EDT - 06/14/2025 12:44 PM EDT Hospital Encounter Procedure Suite, [facility] [address] [facility], [address]th [place] [address] Brionna Littlejohn, Christie Gr MD Discharge Disposition: Home or Self Care 06/14/2025 8:00 AM EDT [facility] Visit [facility] [address] [place] [phone] Jessica Alcantara PA-C Ghobrial, Irene M, MD Asymptomatic multiple myeloma (Primary Dx); Iron deficiency anemia, unspecified iron deficiency anemia type 06/07/2025 Orders Only [facility] [address] [place] [address] Christie Downing MD Smoldering multiple myeloma (SMM) (Primary Dx) from Last 3 Months Immunizations Immunization Administration Dates Next Due COVID-19 (Pre-07/27) Moderna Vaccine, mRNA, PF 11/22/2021,06/05/2021,12/29/2020,12/01 Influenza High-Dose Quadriva lent Preservative Free IM 07/14/2023,07/18/2022,07/09/2021,05/31 Influenza High-Dose Trivalen t Preservative Free IM 08/08/2019,07/14/2018 Pneumococcal conjugate PCV13 07/14/2018 Pneumococcal polysaccharide PPSV23 10/08/2018 RSV Vaccine (monovalent, adjuvanted) 09/02/2023 Tdap 05/17/2023 Zoster recombinant 11/05/2018,2018 Social History Tobacco Use Types Packs/Day Years [...] your housing situation today? 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 Pulse 75 06/14/2025 9:42 AM EDT Temperature 36.5 C (97.7 F) 06/14/2025 9:42 AM EDT Respiratory Rate 16 06/14/2025 9:42 AM EDT Oxygen Saturation 100% 06/14/2025 8:05 AM EDT Inhaled Oxygen Concentration - - Weight 81 kg (178 lb 9.2 oz) 06/14/2025 8:05 AM EDT Height 180 cm (5' 10.87 ) 06/14/2025 8:05 AM EDT Body Mass Index 25 06/14/2025 8:05 AM EDT Plan of Treatment Upcoming Encounters Date Type Department Care Team (Late st Contact Info) Description 09/13/2025 9:00 AM EST Blood Draw Laboratory Services, [address] [place] [address] Christie Downing MD [address] [place] [phone] [email or web address] 09/13/2025 10:00 AM EST Office Visit [facility] [address] [place] [phone] Jessica Alcantara PA-C [address] [place] [phone] [email or web address] 09/19/2025 1:20 PM EST Office Visit [facility] Internal Medicine [address] [place] [phone] Stormy Allred PA-C [address] [place] [address] [email or web address] Health Maintenance Due Date Last Done Comments DEPRESSION SCREENING 1963 COLOGUARD 1996 COLONOSCOPY 1996 COLORECTAL CANCER SCREENING 1996 FIT TEST 1996 FOBT 1996 SIGMOIDOSCOPY 1996 VIRTUAL COLONOSCOPY 1996 LIPID PANEL 01/29/2024 01/28/2019 INFLUENZA VACCINE (#1) 2025 , 07/14/2023, 07/18/2022, Additional history exists COVID-19 VACCINE (2024- season) 2025 12/15/2024, 06/10/2024, 01/29/2024, Additional history exists CREATININE LEVEL 06/14/2026 06/14/2025, , 01/04/2025, Additional history exists Adult Td,Tdap Booster 05/17/2033 05/17/2023 PNEUMOCOCCAL VACCINES (50+ years) Completed 10/08/2018, 07/14/2018 ZOSTER VACCINES Completed 11/05/2018, 2018 HEPATITIS C SCREENING Completed 07/04/2022, 019 RSV VACCINE Completed 09/02/2023 SMOKING STATUS SCREENING (Once After 26 Yrs) Completed 07/07/2024 HEPATITIS A VACCINES Aged Out No long er eligible based on patient's age to complete this topic HIB VACCINES Aged Out No longer eligi ble based on patient's age to complete this topic MENINGOCOCCAL VACCINES (ACWY) Aged Out No longer eligible based on patient's age to complete this topic MENINGOCOCCAL VACCINES (B) Aged Out N o longer eligible based on patient's age to complete this topic Medical Devices Not on file Procedures Procedure Name Priority Date/Time Associated Diagnosis Comments NM PET CT SCALP TO TOES Routine 06/14/20 3:08 PM EDT Iron deficiency anemia, unspecified iron deficiency anemia type POCT GLUCOSE Routine 06/14/2025 1:11 PM EDT BONE MARROW PROCEDURES Routine 9:25 AM EDT Asymptomatic multiple myeloma BONE MARROW Routine 06/14/2025 9:14 AM EDT Bone marrow aspirate Routine 06/14/2025 9:14 AM EDT CLONOSEQ BONE MARROW MRD Routine 06/14/2025 9:14 AM EDT Asymptomatic multiple myeloma LAB ADD ON Routine 06/14/2025 8:21 AM EDT Iron deficiency anemia, unspecified iron deficiency anemia type IRON AND IRON BINDING CAPACITY Routine 06/14/2025 7:41 AM EDT FERRITIN Routine 06/14/2025 7:41 AM EDT PMM3L MGUS Routine 06/14/2025 7:41 AM EDT Smoldering multiple myeloma (SMM) X-LABEL/STUDY Routine 06/14/2025 7:41 AM EDT Asymptomatic multiple myeloma SPEP PANEL WITH IMMUNOFIXATION Routine 06/14/2025 7:41 AM EDT Asymptomatic multiple myeloma PHOSPHORUS Routine 06/14/2025 7:41 AM EDT Asymptomatic multiple myeloma MAGNESIUM Routine 06/14/2025 7:41 AM EDT Asymptomatic multiple myeloma FREE LIGHT CHAINS, SERUM Routine 06/14/2025 7:41 AM EDT Asymptomatic multiple myeloma COMPREHENSIVE METABOLIC PANEL Routine 06/14/2025 7:41 AM EDT Asymptomatic multiple myeloma HC BLOOD COUNT COMPLETE AUTO&AUTO DIFRNTL WBC Routine 06/14/2025 7:41 AM EDT Asymptomatic multiple myeloma BILIRUBIN, DIRECT Routine 06/14/2025 7:4 1 AM EDT Multiple myeloma, remission status unspecified SERUM PROTEIN ELECTROPHORESIS Routine 06/14/2025 12:00 AM EDT CYTOGENETICS Routine 06/14/2025 12:00 AM EDT FLOW CYTOMETRY Routine 06/14/2025 12:00 AM EDT HEPATITIS C ANTIBODY WITH REFLEX TO HCV, RNA QUANTITATIVE REAL-TIME PCR Routine 07/04/2022 11:50 AM EDT Smoldering multiple myeloma (SMM) LIPID PANEL Routine 01/28/2019 10:12 AM EDT from Last 3 Months or Most Recently Relevant to Health Maintenance Results * NM PET CT Scalp to Toes (06/14/2025 3:08 PM EDT) Anatomical Region Laterality Modality Positron Emissio n Tomography (PET) 06/14/2025 3:46 PM EDT Impressions 06/14/2025 4:58 PM EDT No evidence of FDG-avid multiple myeloma. ATTESTATION: Rey Henry, as teaching physician have reviewed the images, if any, for this patient's exam, and if necessary, have edited the report originally created by Velvet Erickson. Narrative 06/14/2025 4:58 PM EDT Reason for exam (per EHR order): Research Study Additional clinical information obtained from the EHR: 75-year-old male with IgA lambda multiple myeloma previously treated with 22-154 ImmunoPRISM finished cycle 18 teclistamab and plan to remain on active follow-up for protocol 22-154 through 07/07/29. Recent bone biopsy was done on left iliac bone. Subsequent treatment strategy. TECHNIQUE: Radiopharmaceutical: F-18-FDG. Dose: 9.7 mCi. Blood glucose: 97 mg/dL. TECHNIQUE: At 61 minutes following IV tracer administration via a right forearm vein, positron emission tomography was performed from the vertex of the skull through the toes. Non-contrast low-dose helical CT imaging was performed over the same range without breath-hold for attenuation correction of PET images and anatomic correlation. COMPARISON: FDG PET/CT on July 08, 2024, May 22, 2022 FINDINGS: HEAD AND NECK: No abnormal FDG uptake in the head and neck. Carotid artery calcifications. CHEST: Ports and devices: None. Lungs: No abnormal FDG uptake. Similar sub-5 mm pulmonary nodules, too small to characterize on PET but without significant FDG uptake, for example, 3 mm subpleural right upper lobe nodule (image 126). Biapical scarring. Pleura: No abnormal FDG uptake. Lymph Nodes: No abnormal FDG uptake. Mediastinum: No abnormal FDG uptake. Atherosclerotic calcifications of the thoracic aorta and coronary arteries. Aortic valvular calcifications. Small hiatal hernia. Breasts/Chest Wall: No abnormal FDG uptake. ABDOMEN/PELVIS: Liver/biliary system: No abnormal increased FDG uptake. Similar appearance of small photopenic right hepatic cyst. Other subcentimeter hypodense lesions in the liver are too small to characterized but statistically likely benign. Pancreas: No abnormal FDG uptake. Spleen: No abnormal FDG uptake. Adrenal Glands: No abnormal FDG uptake. Kidneys: No abnormal FDG uptake. Bowel: No abnormal FDG uptake. Mesentery, Omentum and Peritoneum: No abnormal FDG uptake. Pelvis Organs: No abnormal FDG uptake. Left fat-containing inguinal hernia. Lymph Nodes: No abnormal FDG uptake. MUSCULOSKELETAL: No abnormal FDG uptake to suggest malignancy. Multilevel degenerative changes of the spine. Focal mild FDG uptake in the posterior left iliac bone with adjacent subcutaneous fat stranding on image 270, likely postprocedural from same-day bone marrow biopsy. LOWER EXTREMITIES: No abnormal FDG uptake. Procedure Note Rey Silverman MD - 06/14/2025 Reason for exam (per EHR order): Research Study Additional clinical information obtained from the EHR: 75-year-old malewith IgA lambda multiple myeloma previously treated with 22-154ImmunoPRISM finished cycle 18 teclistamab and plan to remain on activefollow-up for protocol 22-154 through 07/07/29. Recent bone biopsy was doneon left iliac bone. Subsequent treatment strategy. TECHNIQUE: Radiopharmaceutical: F-18-FDG. Dose: 9.7 mCi. Blood glucose: 97 mg/dL. TECHNIQUE: At 61 minutes following IV tracer administration via a rightforearm vein, positron emission tomography was performed from the vertexof the skull through the toes. Non-contrast low-dose helical CT imagingwas performed over the same range without breath-hold for attenuationcorrection of PET images and anatomic correlation. COMPARISON: FDG PET/CT on July 08, 2024, May 22, 2022 FINDINGS: HEAD AND NECK: No abnormal FDG uptake in the head and neck. Carotid arterycalcifications. CHEST: Ports and devices: None. Lungs: No abnormal FDG uptake. Similar sub-5 mm pulmonary nodules, toosmall to characterize on PET but without significant FDG uptake, forexample, 3 mm subpleural right upper lobe nodule (image 126). Biapicalscarring. Pleura: No abnormal FDG uptake. Lymph Nodes: No abnormal FDG uptake. Mediastinum: No abnormal FDG uptake. Atherosclerotic calcifications of thethoracic aorta and coronary arteries. Aortic valvular calcifications.Small hiatal hernia. Breasts/Chest Wall: No abnormal FDG uptake. ABDOMEN/PELVIS: Liver/biliary system: No abnormal increased FDG uptake. Similar appearanceof small photopenic right hepatic cyst. Other subcentimeter hypodenselesions in the liver are too small to characterized but statisticallylikely benign. Pancreas: No abnormal FDG uptake. Spleen: No abnormal FDG uptake. Adrenal Glands: No abnormal FDG uptake. Kidneys: No abnormal FDG uptake. Bowel: No abnormal FDG uptake. Mesentery, Omentum and Peritoneum: No abnormal FDG uptake. Pelvis Organs: No abnormal FDG uptake. Left fat-containing inguinalhernia. Lymph Nodes: No abnormal FDG uptake. MUSCULOSKELETAL: No abnormal FDG uptake to suggest malignancy. Multileveldegenerative changes of the spine. Focal mild FDG uptake in the posteriorleft iliac bone with adjacent subcutaneous fat stranding on image 270,likely postprocedural from same-day bone marrow biopsy. LOWER EXTREMITIES: No abnormal FDG uptake. IMPRESSION: No evidence of FDG-avid multiple myeloma. ATTESTATION: Rey Henry, as teaching physician have reviewed theimages, if any, for this patient's exam, and if necessary, have edited thereport originally created by Velvet Erickson. us Christie Downing MD IMG NM PET Final Result * POCT Glucose (06/14/2025 1:11 PM EDT) Glucose, POCT 97 70 - 100 mg/dL [facility] 06/14/2025 1:11 PM EDT 06/14/2025 1:17 PM EDT us Christie Downing MD POINT OF CARE TEST ORDERABLE S Final Result Performing Organization Address City/State/[facility] Co de Phone Number [facility] [address] [place] [id number] * BONE MARROW PROCEDURES (06/14/2025 9:25 AM EDT) Narrative Brionna Littlejohn NP - 06/14/2025 9:25 AM EDT Brionna Littlejohn NP 06/14/2025 9:50 AM Bone Marrow Procedures Date/Time: 06/14/2025 9:25 AM Performed by: Brionna Littlejohn NP Authorized by: Christie Downing MD Verbal consent obtained?: Yes Written consent obtained?: Yes Time out: Immediately prior to the procedure a time-out was called Preparation: Patient was prepped and draped in usual sterile fashion Estimated blood loss: Less than 10cc Specimens collected: Bone Marrow Core and Aspiration (Clonoseq, flow, cyto, 4 purple tops for research) Aspiration Volume Removed: 37cc Unexpected or unusual outcomes: None Assisting clinician: Meghan Loco Local anesthesia used?: Yes Local anesthetic (Please document the med administrations in the MAR or Sedation Narrator activitiy depending on workflow): Lidocaine 1% with epinephrine and lidocaine 1% without epinephrine 10cc or less Patient sedated?: No Patient tolerance: Patient tolerated the procedure well with no immediate complications Comments: An 11 g Jamshidi needle was inserted into the posterior iliac crest. Liquid aspirate was obtained. Next, the instrument was advanced. Core was obtained using the included marrow acquisition cradle. 1 cm core sample was removed. Gentle pressure was applied to the site. Hemostasis was achieved. The area was cleansed and dressed. us Christie Downing MD PROCEDURE/MINOR SURGICAL ORD ERABLES Final Result * CLONOSEQ BONE MARROW MRD (06/14/2025 9:14 AM EDT) Pathologist [facility] Clonoseq Bm Mrd SEE MANUAL REPORT [facility] Blood 06/14/2025 9:14 AM EDT 06/14/2025 10:39 AM EDT us Christie Downing MD LAB BLOOD ORDERABLES Final R esult Performing Organization Address [facility] Co de Phone Number [facility] [address] [place] [address] * Bone marrow aspirate (06/14/2025 9:14 AM EDT) Pathologist [facility] BONE MARROW DIFF SEE PATHOLOGY REPORT [facility] LIC# [id number] 06/14/2025 9:14 AM EDT 06/14/2025 10:11 AM EDT us Brionna Littlejohn NP BODY FLUIDS AND STOOLS ORDERABLES Final Result Performing Organization Address [facility] Co de Phone Number [facility] LIC# [id number] [address] [place] [address] * Bone Marrow (06/14/2025 9:14 AM EDT) [facility] Final Diagnosis A-C. BONE MARROW CORE BIOPSY AND ASPIRATE, PERIPHERAL BLOOD SMEAR: Normocellular marrow with maturing trilineage hematopoiesis (see COMMENT). COMMENT: Diagnostic morphologic features of a plasma cell neoplasm are not seen. Correlation with ancillary bone marrow testing findings is advised. CORE BIOPSY: Biopsy specimen quality/adequacy: adequate. Marrow biopsy cellularity: 30%; age-adjusted normocellular. Myeloid:erythroid ratio: normal. Myeloid maturation: complete. Erythroid maturation: complete. Blasts: appear to comprise less than 5% of the cellularity. Megakaryocytes: adequate, overall exhibit a normal spectrum of morphology. A few lymphoid aggregates are seen, composed predominantly of CD5-positive T cells with very few admixed PAX5-positive B cells (PAX5/CD5 double stain examined), favor reactive. [place]/lambda in situ hybridization shows few scattered, apparently polytypic plasma cells (<1% of marrow cellularity). A Giemsa special stain was performed to evaluate mast cells and plasma cells. Bone trabeculae exhibit focal osteoblastic activity. ASPIRATE SMEAR AND TOUCH PREPARATION: Specimen adequacy: spicular, cellular Touch prep: adequate A 400-cell count reveals: Blasts: 1% Promyelocytes: 3% Neutrophils and precursors: 55% Erythroid precursors: 25% Monocytes: 2% Eosinophils: 5% Basophils: 0% Lymphocytes: 8% Plasma cells: 1% M:E ratio: 2.5 Myeloid maturation is complete, and without significant dysplasia. Erythroid maturation is complete and without significant morphologic abnormalities. Megakaryocytes are seen, and are without significant morphologic abnormalities. FLOW CYTOMETRY ([id number], marrow): Flow cytometric analysis of this bone marrow specimen reveals a minute population of immunophenotypically normal plasma cells with polytypic expression of cytoplasmic immunoglobulin kappa and lambda light chains. Diagnostic features of involvement by a plasma cell disorder are not seen. PERIPHERAL BLOOD: CBC results from 06/14/25 are as follows: WBC 4.53 K/uL; HGB 14.1 g/dL; HCT 39.8%; MCV 86.5 fL; RDW 13.1%; PLT 223 K/uL. Auto differential: 66.4% polys; 19.6% lymphs; 11.3% monos; 1.8% eos; 0.7% basos; 0.2% immature granulocytes; 0 nRBC/100WBC. Review of the peripheral smear confirms the CBC findings. No circulating plasma cells are identified. 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 [facility] Operation None provided. [facility] Tissue Submitted A/1. Bone marrow biopsy B/2. Bone marrow aspirate C/3. Peripheral blood smear [facility] Gross Description The specimen is received in 3 parts, each labeled with the patient's name and medical record number. Part A received in [facility]in's consists of one core of eldridge tissue (1.4 cm in length by 0.2 cm in diameter). The specimen is briefly decalcified in RapidCal-Immuno for 30 minutes and entirely submitted. A1: 1 fragment. Part B received fresh consists of 9 air-dried bone marrow aspirate smear(s). Part C received fresh consists of a Young-stained peripheral blood smear. Dictated by: Tianna Roberts By his/her signature below, the senior physician certifies that he/she personally conducted a microscopic examination ( gross only exam if so stated) of the described specimen(s) and rendered or confirmed the diagnosis(es) related thereto. The immunohistochemical (IHC) stains performed on this case are deemed medically necessary. Some of the antigens may also have been evaluated by flow cytometry. Concurrent evaluation by IHC on tissue sections is indicated in this case in order to correlate immunophenotype with cell morphology and/or determine extent of involvement, spatial pattern and focality of potential disease distribution. The immunoperoxidase, immunofluorescence and in-situ hybridization tests performed at [facility] were developed and their performance characteristics determined by the [facility] in the Department of Pathology at [facility]. They have not been cleared or approved by the U.S. Food and Drug Administration (FDA). The FDA has determined that such clearance or approval is not necessary. [facility] Procedure Comments ProcCreate a paraffin block - [facility] Decalcification of a specimen - [facility] (order for accession only, not for recut) Giemsa Level 1 - [facility] PAX5 CD5 double stain - [facility] [place] In situ hybridization (Pinkus) - [facility] Lambda in situ hybridization (Pinkus) - [facility] Bone Marrow Stained Slide - [facility] Peripheral Blood Stained Slide - [facility] Touch Prep on bone marrow aspirate, pro charge Bone Marrow Unstained Slide - [facility] (order for accession only, not for recut) H&E stain on level 2 slide - [facility] (for accession only, not for recut) No bake, 63 degrees for Pinkus lab - [facility] Report Accession No: [id number] Date: 1950 Sex: Male [facility] Department of Pathology [address] [place], [place] [address]IA License No.: [id number] Office Equipment Technician: Dr. Karl Littlejohn M.D., Ph.D. Physician: CHRISTIE DOWNING MD Procedure Date: 06/14/2025 Resident: Arian Jensen MD Pathologist: Marine Mulligan M.D. PATHOLOGIC DIAGNOSIS: A-C. BONE MARROW CORE BIOPSY AND ASPIRATE, PERIPHERAL BLOOD SMEAR: Normocellular marrow with maturing trilineage hematopoiesis (see COMMENT). COMMENT: Diagnostic morphologic features of a plasma cell neoplasm are not seen. Correlation with ancillary bone marrow testing findings is advised. CORE BIOPSY: Biopsy specimen quality/adequacy: adequate. Marrow biopsy cellularity: 30%; age-adjusted normocellular. Myeloid:erythroid ratio: normal. Myeloid maturation: complete. Erythroid maturation: complete. Blasts: appear to comprise less than 5% of the cellularity. Megakaryocytes: adequate, overall exhibit a normal spectrum of morphology. A few lymphoid aggregates are seen, composed predominantly of CD5-positive T cells with very few admixed PAX5-positive B cells (PAX5/CD5 double stain examined), favor reactive. [place]/lambda in situ hybridization shows few scattered, apparently polytypic plasma cells (<1% of marrow cellularity). A Giemsa special stain was performed to evaluate mast cells and plasma cells. Bone trabeculae exhibit focal osteoblastic activity. ASPIRATE SMEAR AND TOUCH PREPARATION: Specimen adequacy: spicular, cellular Touch prep: adequate A 400-cell count reveals: Blasts: 1% Promyelocytes: 3% Neutrophils and precursors: 55% Erythroid precursors: 25% Monocytes: 2% Eosinophils: 5% Basophils: 0% Lymphocytes: 8% Plasma cells: 1% M:E ratio: 2.5 Myeloid maturation is complete, and without significant dysplasia. Erythroid maturation is complete and without significant morphologic abnormalities. Megakaryocytes are seen, and are without significant morphologic abnormalities. FLOW CYTOMETRY ([id number], marrow): Flow cytometric analysis of this bone marrow specimen reveals a minute population of immunophenotypically normal plasma cells with polytypic expression of cytoplasmic immunoglobulin kappa and lambda light chains. Diagnostic features of involvement by a plasma cell disorder are not seen. PERIPHERAL BLOOD: CBC results from 06/14/25 are as follows: WBC 4.53 K/uL; HGB 14.1 g/dL; HCT 39.8%; MCV 86.5 fL; RDW 13.1%; PLT 223 K/uL. Auto differential: 66.4% polys; 19.6% lymphs; 11.3% monos; 1.8% eos; 0.7% basos; 0.2% immature granulocytes; 0 nRBC/100WBC. Review of the peripheral smear confirms the CBC findings. No circulating plasma cells are identified. 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 Operation: None provided. TISSUE SUBMITTED: A/1. Bone marrow biopsy B/2. Bone marrow aspirate C/3. Peripheral blood smear GROSS DESCRIPTION: The specimen is received in 3 parts, each labeled with the patient's name and medical record number. Part A received in Bouin's consists of one core of eldridge tissue (1.4 cm in length by 0.2 cm in diameter). The specimen is briefly decalcified in RapidCal-Immuno for 30 minutes and entirely submitted. A1: 1 fragment. Part B received fresh consists of 9 air-dried bone marrow aspirate smear(s). Part C received fresh consists of a Young-stained peripheral blood smear. Dictated by: Tianna Roberts By his/her signature below, the senior physician certifies that he/she personally conducted a microscopic examination ( gross only exam if so stated) of the described specimen(s) and rendered or confirmed the diagnosis(es) related thereto. The immunohistochemical (IHC) stains performed on this case are deemed medically necessary. Some of the antigens may also have been evaluated by flow cytometry. Concurrent evaluation by IHC on tissue sections is indicated in this case in order to correlate immunophenotype with cell morphology and/or determine extent of involvement, spatial pattern and focality of potential disease distribution. The immunoperoxidase, immunofluorescence and in-situ hybridization tests performed at [facility] were developed and their performance characteristics determined by the [facility] Laboratories in the Department of Pathology at [facility]. They have not been cleared or approved by the U.S. Food and Drug Administration (FDA). The FDA has determined that such clearance or approval is not necessary. Final Diagnosis by Marine Mulligan M.D., Electronically signed on Friday June 20, 2025 at 05:03:43PM [facility] Conversion Type (Other) 06/14/2025 9:14 AM EDT 06/14/2025 Christie Downing MD PATHOLOGY ORDERABLES Edited Result - Final [facility] * Lab Add On: serum iron, TIBC and ferritin (06/14/2025 8:21 AM EDT) TEST REQUESTED SERUM IRON, TIBC AND FERRITIN [facility] LIC# [id number] Comments (Chemistry) TEST TO BE ADDED ON TO EXISTING SPECIMEN [facility] LIC# [id number] Blood 06/14/2025 8:21 AM EDT 06/14/2025 8:58 AM EDT Jessica Alcantara PA-C LAB BLOOD ORDERABLES Edite d Result - Final Performing Organization Address City/[facility]/ZIP Co de Phone Number [facility] LIC# [id number] [address] [place] [address] * PMM3L MGUS (06/14/2025 7:41 AM EDT) Research Test FOR RESEARCH STUDY [facility] LIC# [id number] Blood 06/14/2025 7:41 AM EDT 06/14/2025 7:45 AM EDT Christie Downing MD LAB BLOOD ORDERABLES Final R esult Performing Organization Address City/[facility] Co de Phone Number [facility] LIC# [id number] [address] [place] [address] * (ABNORMAL) SPEP panel with immunofixation (06/14/2025 7:41 AM EDT) TOTAL PROTEIN 6.7 6.4 - 8.3 g/dL [facility] SPEP SEE PATHOLOGY REPORT [facility] IMMUNOFIXATION SEE PATHOLOGY REPORT [facility] IgA 28(L) 70 - 400 mg/dL [facility] IMMUNOGLOBULIN G 279(L) 700 - 1,600 mg/dL [facility] IMMUNOGLOBULIN M 24(L) 40 - 230 mg/dL [facility] Blood 06/14/2025 7:41 AM EDT 06/14/2025 7:45 AM EDT Christie Downing MD LAB BLOOD ORDERABLES Final R esult [facility] [address] [place] [address] * X-Label/study (06/14/2025 7:41 AM EDT) EXTRA TUBES NEEDED FOR RESEARCH STUDY [facility] LIC# [id number] Resulting Agency [facility] LIC# [id number] Blood 06/14/2025 7:41 AM EDT 06/14/2025 7:45 AM EDT Christie Downing MD LAB BLOOD ORDERABLES Final R esult [facility] LIC# [id number] [address] [place] [address] * (ABNORMAL) Comprehensive metabolic panel (06/14/2025 7:41 AM EDT) SODIUM 139 136 - 145 mmol/L [facility] LIC# [id number] POTASSIUM 4.1 3.4 - 5.1 mmol/L [facility] LIC# [id number] CHLORIDE 102 98 - 107 mmol/L [facility] LIC# [id number] CO2 23 22 - 31 mmol/L [facility] LIC# [id number] BUN 18 6 - 23 mg/dL [facility] LIC# [id number] CREATININE 1.11 0.50 - 1.20 mg/dL [facility] LIC# [id number] GLUCOSE 115(H) 70 - 100 mg/dL [facility] LIC# [id number] ALBUMIN 4.5 3.5 - 5.2 g/dL [facility] LIC# [id number] TOTAL PROTEIN 6.7 6.4 - 8.3 g/dL [facility] LIC# [id number] CALCIUM 9.3 8.8 - 10.7 mg/dL [facility] LIC# [id number] ALKALINE PHOSPHATASE 74 40 - 129 U/L [facility] LIC# [id number] TOTAL BILIRUBIN 1.2 0.2 - 1.2 mg/dL [facility] LIC# [id number] AST 38 <41 U/L [facility] LIC# [id number] ALT 11 <42 U/L [facility] LIC# [id number] GLOBULIN 2.2(L) 2.3 - 4.2 g/dL [facility] LIC# [id number] EGFR 70 >59 mL/min/1.7 3m2 [facility] LIC# [id number] Comment:Estimated glomerular filtration rate calculated using the CKD-EPI refit equation. ANION GAP 14 7 - 17 mmol/L [facility] LIC# [id number] Blood 06/14/2025 7:41 AM EDT 06/14/2025 7:45 AM EDT us Christie Downing MD LAB BLOOD ORDERABLES Final R esult [facility] LIC# [id number] [address] [place] [address] * Iron and iron binding capacity (06/14/2025 7:41 AM EDT) IRON 78 59 - 158 ug/dL [facility] LIC# [id number] IRON BINDING CAPACITY 432 220 - 460 ug/dL [facility] LIC# [id number] TRANSFERRIN SATURAT. 18 14 - 50 % [facility] LIC# [id number] 06/14/2025 7:41 AM EDT 06/14/2025 7:45 AM EDT Christie Downing MD LAB BLOOD ORDERABLES Final R esult [facility] LIC# [id number] [address] [place] [address] * (ABNORMAL) Free light chains, serum (06/14/2025 7:41 AM EDT) FREE KAPPA LT CHAIN 6.1 3.3 - 19.4 mg/L [facility] FREE LAMBDA LT CHAIN 4.5(L) 5.7 - 26.3 mg/L [facility] FREE KAPPA LAMBDA RAT 1.36 0.26 - 1.65 [facility] Blood 06/14/2025 7:41 AM EDT 06/14/2025 7:45 AM EDT Christie Downing MD LAB BLOOD ORDERABLES Final R esult Performing Organization Address City/[facility] Co de Phone Number [facility] [address] [place] [phone] * (ABNORMAL) CBC and differential (06/14/2025 7:41 AM EDT) WBC 4.53 4.00 - 10.00 K/uL [facility] LIC# [id number] RBC 4.60 4.50 - 6.40 M/uL [facility] LIC# [id number] HGB 14.1 13.5 - 18.0 g/dL [facility] LIC# [id number] HCT 39.8(L) 40.0 - 54.0 % [facility] LIC# [id number] PLT 223 150 - 450 K/uL [facility] LIC# [id number] MCV 86.5 80.0 - 100.0 fL [facility] LIC# [id number] MCH 30.7 27.0 - 32.0 pg [facility] LIC# [id number] MCHC 35.4 32.0 - 36.0 g/dL [facility] LIC# [id number] RDW 13.1 11.5 - 14.5 % [facility] LIC# [id number] MPV 9.5 8.4 - 12.0 fL [facility] LIC# [id number] NRBC 0.00 0 /100 WBCs [facility] LIC# [id number] ABSOLUTE NRBC 0.00 0 K/uL [facility] LIC# [id number] DIFF METHOD Auto [facility] LIC# [id number] NEUTS 66.4 48.0 - 76.0 % [facility] LIC# [id number] LYMPHS 19.6 18.0 - 41.0 % [facility] LIC# [id number] MONOS 11.3(H) 4.0 - 11.0 % [facility] LIC# [id number] EOS 1.8 0.0 - 5.0 % [facility] LIC# [id number] BASOS 0.7 0.0 - 1.5 % [facility] LIC# [id number] % IMMATURE GRANS 0.2 0.0 - 1.0 % [facility] LIC# [id number] ABSOLUTE NEUTS 3.01 1.92 - 7.60 K/uL [facility] LIC# [id number] ABSOLUTE LYMPHS 0.89 0.72 - 4.10 K/uL [facility] LIC# [id number] ABSOLUTE MONOS 0.51 0.16 - 1.10 K/uL [facility] LIC# [id number] ABSOLUTE EOS 0.08 0.00 - 0.50 K/uL [facility] LIC# [id number] ABSOLUTE BASOS 0.03 0.00 - 0.15 K/uL [facility] LIC# [id number] ABS IMMATURE GRANS 0.01 0.00 - 0.10 K/uL [facility] LIC# [id number] Blood 06/14/2025 7:41 AM EDT 06/14/2025 7:45 AM EDT us Christie Downing MD LAB BLOOD ORDERABLES Final R esult Performing Organization Address [facility] Co de Phone Number [facility] LIC# [id number] [address] [place] [address] * Phosphorus (06/14/2025 7:41 AM EDT) PHOSPHORUS 3.1 2.5 - 4.5 mg/dL [facility] LIC# [id number] Blood 06/14/2025 7:41 AM EDT 06/14/2025 7:45 AM EDT us Christie Downing MD LAB BLOOD ORDERABLES Final R esult Performing Organization Address [facility] Co de Phone Number [facility] LIC# [id number] [address] [place] [address] * Magnesium (06/14/2025 7:41 AM EDT) MAGNESIUM 2.2 1.7 - 2.6 mg/dL [facility] LIC# [id number] Blood 06/14/2025 7:41 AM EDT 06/14/2025 7:45 AM EDT us Christie Downing MD LAB BLOOD ORDERABLES Final R esult Performing Organization Address [facility] Co de Phone Number [facility] LIC# [id number] [address] [place] [address] * (ABNORMAL) Ferritin (06/14/2025 7:41 AM EDT) FERRITIN 19(L) 30 - 400 ug/L [facility] LIC# [id number] 06/14/2025 7:41 AM EDT 06/14/2025 7:45 AM EDT us Christie Downing MD LAB BLOOD ORDERABLES Final R esult Performing Organization Address City/[facility] Co de Phone Number [facility] LIC# [id number] [address] [place] [address] * (ABNORMAL) Bilirubin, direct (06/14/2025 7:41 AM EDT) DIRECT BILIRUBIN 0.4(H) 0.0 - 0.3 mg/dL [facility] LIC# [id number] Blood 06/14/2025 7:41 AM EDT 06/14/2025 7:45 AM EDT us Christie Downing MD LAB BLOOD ORDERABLES Final R esult Performing Organization Address [facility] Co de Phone Number [facility] LIC# [id number] [address] [place] [address] * Flow Cytometry (06/14/2025 12:00 AM EDT) 06/14/2025 06/14/2025 Narrative [facility] - 06/14/2025 3:28 PM EDT CASE: [id number] PATIENT: ADAL THORNE Date: 1950 Sex: Male [employer] [facility] Department of Pathology [address] [place] [address] CLIA License No.: [id number] Office Equipment Technician: Ariane Lawson MD, PhD Pathologist: Arthur Bassett M.D., Ph.D. CLINICAL DATA: Clinical History: IgA lambda smoldering myeloma Clinical Diagnosis: None given. RESULT: FLOW CYTOMETRY REPORT -- MYELOMA PANEL Gating is by CD38 and/or CD138 bright events with 0.007% of the total events in the gate. Antibodies targeting the following antigens were used: CD19, CD27, CD38, CD45, CD56, CD81, CD117, CD138, cytoplasmic kappa light chain, and cytoplasmic lambda light chain. A total of 244,088 events was collected with 17 events in the plasma cell gate. INTERPRETATION: Flow cytometric analysis of this bone marrow specimen reveals a minute population of immunophenotypically normal plasma cells with polytypic expression of cytoplasmic immunoglobulin kappa and lambda light chains. Diagnostic features of involvement by a plasma cell disorder are not seen. Correlation with clinical, morphologic, and other laboratory findings is advised. This case was prepared by Cathleen Lancaster MT([facility]). Flow cytometric assessment of the following antigens was incorporated into the evaluation and interpretation of this specimen: CD19, CD27, CD38, CD45, CD56. CD81, CD117, CD138, cytoplasmic kappa light chain, cytoplasmic lambda light chain. The technical component of this test was performed at [facility], [address] [place] [address] (CLIA Policy Advisor: Ariane Lawson MD, PhD). This test was developed and its performance characteristics determined by [facility]. It has not been cleared or approved by the U.S. Food and Drug Administration (FDA). The FDA has determined that such clearance or approval is not necessary; the performing laboratory has established and verified the test's accuracy and precision. This test is for clinical purposes, and should not be regarded as investigational or for research. The [facility] laboratory and [facility] laboratory are both certified under CLIA-88 as qualified to perform high complexity laboratory testing. By his/her signature below, the senior physician certifies that he/she personally reviewed all the laboratory data of the described specimen(s) and rendered or confirmed the diagnosis(es) related thereto. Final Diagnosis by Arthur Bassett M.D., Ph.D., Electronically signed on Saturday June 14, 2025 at 03:28:21PM us Christie Downing MD PATHOLOGY ORDERABLES Final R esult [facility] [address] [place] [address] * Protein Electrophoresis (06/14/2025 12:00 AM EDT) 06/14/2025 06/14/2025 Narrative [facility] - 06/21/2025 8:35 PM EDT CASE: [id number] PATIENT: ADAL THORNE Date: 1950 Sex: Male [facility] Department of Pathology [address] [place] [address] CLIA License No.: [id number] Office Equipment Technician: Ariane Lawson MD, PhD Resident: Oleg Dowling M.D., Ph.D. Pathologist: Seng Jimenes M.D., Ph.D. CLINICAL DATA: Clinical Diagnosis: TEST ORDERED: Serum protein electrophoresis professional interpretation - [facility] 1 Serum immunofixation electrophoresis professional interpretation - [facility] RESULT: Reference range Total Protein 6.7 g/dl 6.4 - 8.3 g/dL Albumin 4.04 g/dl 3.20 - 5.30 g/dL Alpha 1 0.21 g/dl 0.10 - 0.40 g/dL Alpha 2 1.05 g/dl (HI) 0.50 - 1.00 g/dL Beta 0.94 g/dl 0.60 - 1.20 g/dL Gamma 0.46 g/dl (LO) 0.80 - 1.70 g/dL [place] 6.1 mg/L 3.3 - 19.4 mg/L Lambda 4.5 mg/L (LO) 5.7 - 26.3 mg/L [place]/Lambda 1.36 0.26 - 1.65 IgG 279 mg/dL (LO) 700 - 1600 mg/dL IgA 28 mg/dL (LO) 70 - 400 mg/dL IgM 24 mg/dL (LO) 40 - 230 mg/dL MOST RECENT PRIOR SERUM ELECTROPHORESIS RESULTS: Date Beta Gamma [place] Lambda K/L IgG IgA IgM MSp1 MSp2 MSp3 g/dl g/dl mg/l mg/l mg/dl mg/dl mg/dl g/dl g/dl g/dl 03/29/25 0.82 0.29 5.4 3.7 1.46 290 30 16 01/04/25 0.88 0.40 4.8 3.4 1.41 369 32 17 10/12/24 0.81 0.43 5.5 4.2 1.31 475 42 < 15 07/07/24 1.00 0.83 1.9 < 1.3 1.46 795 < 5 < 15 06/01/24 0.90 0.80 855 < 5 < 15 05/04/24 0.86 0.66 < 1.0 < 1.3 0.77 737 < 5 < 15 04/05/24 0.87 0.66 < 1.0 < 1.3 0.77 651 < 5 < 15 06 0.90 0.53 < 1.0 < 1.3 0.77 556 < 5 < 15 02/09/24 0.87 0.89 < 1.0 < 1.3 0.77 903 < 5 < 15 01/12/24 0.82 0.78 < 1.0 < 1.3 0.77 814 < 5 < 15 12/23/23 0.92 1.03 < 1.0 < 1.3 0.77 1086 < 5 < 15 12/15/23 0.93 0.86 < 1.0 < 1.3 0.77 775 < 5 < 15 11/17/23 0.84 0.82 < 1.0 < 1.3 0.77 878 < 5 < 15 10/20/23 0.90 0.83 < 1.0 < 1.3 0.77 833 < 5 < 15 09/23/23 0.90 0.76 < 1.0 < 1.3 0.77 737 < 5 < 15 08/28/23 0.80 0.66 < 1.0 < 1.3 0.77 715 < 5 < 15 07/21/23 0.86 0.97 < 1.0 < 1.3 0.77 1066 < 5 < 15 07/14/23 0.90 0.80 < 1.0 < 1.3 0.77 912 < 5 < 15 06/09/23 0.87 0.84 < 1.0 < 1.3 0.77 896 < 5 < 15 05/12/23 0.91 0.81 < 1.0 < 1.3 0.77 858 < 5 < 15 04/14/23 0.83 0.79 < 1.0 < 1.3 0.77 824 < 5 < 15 03/17/23 0.83 0.74 < 1.0 < 1.3 0.77 797 < 5 < 15 02/17/23 0.85 0.79 1.0 < 1.3 0.77 866 < 5 < 15 01/20/23 0.85 0.70 < 1.0 < 1.3 0.77 748 < 5 < 15 12/16/22 0.91 0.83 < 1.0 < 1.3 0.77 815 < 5 < 15 11/18/22 0.86 0.63 < 1.0 < 1.3 0.77 730 < 5 < 15 10/21/22 0.80 0.47 < 1.0 < 1.3 0.77 491 11 < 15 09/23/22 0.76 0.25 < 1.0 < 1.3 0.77 192 57 < 15 08/26/22 1.10 0.27 < 1.0 < 1.3 0.77 229 283 < 15 0.24 07/27/22 1.75 0.32 275 1226 < 15 0.71 07/04/22 1.97 0.33 7.2 594.1 0.01 275 1316 < 15 1.02 05/16/22 1.93 0.31 5.3 541.3 0.01 272 1251 < 15 1.02 02/14/22 1.75 0.34 5.7 538.7 0.01 300 1192 < 15 0.78 11/15/21 1.86 0.31 6.2 576.4 0.01 276 1155 < 15 0.84 08/23/21 1.80 0.29 5.6 513.7 0.01 306 1211 < 15 0.64 05/31/21 1.73 0.32 5.1 481.1 0.01 269 948 < 15 0.75 03/01/21 1.39 0.25 5.9 335.7 0.02 232 617 < 15 0.54 11/30/20 1.48 0.26 7.6 342.1 0.02 231 706 < 15 0.54 09/07/20 1.52 0.27 6.9 313.6 0.02 266 802 < 15 0.58 06/08/20 1.57 0.33 10.2 456.2 0.02 315 1102 <15 0.67 03/20/20 1.51 0.27 6.7 404.0 0.02 265 667 < 15 0.56 12/23/19 1.52 0.24 4.6 322.3 0.01 215 605 < 15 0.59 11/18/19 1.31 0.24 193 541 < 15 0.43 10/28/19 0.73 0.24 6.3 249.6 0.03 219 538 < 15 0.42 09/30/19 1.23 0.28 7.2 276.8 0.03 219 544 < 15 0.37 09/02/19 1.36 0.26 6.4 265.4 0.02 245 602 < 15 0.48 08/05/19 1.62 0.27 6.2 362.3 0.02 252 891 < 15 0.71 07/01/19 1.44 0.31 8.8 265.0 0.03 245 607 < 15 0.56 06/03/19 0.79 0.32 8.1 231.8 0.03 267 638 < 15 0.60 05/06/19 1.79 0.35 8.0 333.5 0.02 301 923 < 15 0.78 03/25/19 0.91 1.45 11.0 340.7 0.03 365 928 17 0.63 02/25/19 1.87 0.42 8.8 597.0 0.01 421 1227 15 0.89 01/28/19 2.07 0.52 7.6 535.4 0.01 429 1179 22 0.54 01/28/19 2.10 0.43 7.4 352.4 0.02 382 881 18 08/27/18 1.89 0.44 9.7 321.5 0.03 354 902 23 0.63 INTERPRETATION: Protein Electrophoresis: -No M-spike detected Hypogammaglobulinemia Immunofixation: -No monoclonal gammopathy By his/her signature below, the senior physician certifies that he/she personally reviewed all the laboratory data of the described specimen(s) and rendered or confirmed the diagnosis(es) related thereto. Final Diagnosis by Seng Jimenes M.D., Ph.D., Electronically signed on Saturday June 21, 2025 at 08:34:41PM us Christie Downing MD PATHOLOGY ORDERABLES Final R esult Performing Organization Address City/State/[facility] Co de Phone Number [facility] [address] [place] [phone] * Cytogenetics (06/14/2025 12:00 AM EDT) Results Not Performed [facility] Metaphases Counted N/A ANALYZED: N/A SCORED: N/A BANDING: FISH [facility] Results\Interp retation Insufficient plasma cells (<0.2% by flow) were available from this specimen and therefore CD138 enrichment was not attempted and myeloma FISH studies not completed. [facility] Indication for Test High risk [facility] Procedure Comments ProcTissue Culture, Bone Marrow, leukemic blood Slide for Chromosome Analysis (2KT) Slide for Chromosome Analysis (2KT) [facility] Report Accession No: [id number] Date: 1950 Sex: Male [place] [employer] [facility] Department of Pathology [address] [place], [place] [address]IA License No.: [id number] Office Equipment Technician: Jackie Pascual, PhD, [facility] Physician: CHRISTIE DOWNING MD Specimen Submitted: cg-Bone Marrow ~SP_Collection_d ate Cdl Driver: Arthur Novak Ph.D. RESULTS: Not Performed METAPHASES COUNTED: N/A ANALYZED: N/A SCORED: N/A BANDING: FISH INTERPRETATION: Insufficient plasma cells (<0.2% by flow) were available from this specimen and therefore CD138 enrichment was not attempted and myeloma FISH studies not completed. INDICATION FOR TEST: High risk [facility] REPORT by Arthur Novak Ph.D., on Saturday June 14, 2025 at 05:45:00PM Final Diagnosis by Arthur Novak Ph.D., Electronically signed on Saturday June 14, 2025 at 05:46:23PM [facility] Conversion Type (Other) 06/14/2025 06/14/2025 us Christie Downing MD PATHOLOGY ORDERABLES Edited Result - Final [facility] * Hepatitis C Antibody with Reflex to HCV, RNA quantitative Real-Time PCR (07/04/2022 11:50 AM EDT) HCV Ab Negative Negative [facility] [address] Comment: (NOTE) Xgseuy-ll-nytqre ratio is <1.00. Blood 07/04/2022 11:5 0 AM EDT 07/04/2022 11:55 AM EDT Christie Downing MD LAB BLOOD ORDERABLES Final R esult [facility] [address] [place] [address] * (ABNORMAL) Lipid panel (01/28/2019 10:12 AM EDT) CHOLESTEROL 231(H) <200 mg/dL [facility] LIC# [id number] TRIGLYCERIDES 66 35 - 150 mg/dL [facility] LIC# [id number] HDL 63(H) 40 - 60 mg/dL [facility] LIC# [id number] CALCULATED LDL 155(H) 50 - 129 mg/dL [facility] LIC# [id number] VLDL 13 mg/dL [facility] LIC# [id number] CARDIAC RISK RATIO 3.7 0 - 5 D [facility] LIC# [id number] 01/28/2019 10:1 2 AM EDT 01/28/2019 10:18 AM EDT Christie Downing MD LAB BLOOD ORDERABLES Final R esult [facility] LIC# [id number] [address] [place] [address] from Last 3 Months or Most Recently Relevant to Health Maintenance Insurance MEDICARE PART A & B [facility] MEDIC[facility] SUPPLEMENT MEDICARE PART A & B [facility]IC[facility] SUPPLEMENT MEDICARE PART A & B [facility] EXTENSION MEDICARE SUPPLEMENT MEDICARE PART A & B [facility] EXTENSION MEDICARE SUPPLEMENT MEDICARE PART A & B [facility] EXTENSION MEDICARE SUPPLEMENT MEDICARE PART A & B [facility] MEDICARE SUPPLEMENT MEDICARE PART A & B [facility] MEDICARE SUPPLEMENT MEDICARE PART A & B [facility] MEDIC[facility] SUPPLEMENT MEDICARE PART A & B Member Subscriber Plan / Payer (Ef fective 2018-Present) Name:Adal Thorne Member ID:[id number] Relation to Subscriber:Self Name:Adal Thorne Subscriber ID:[id number] Payer ID:[id number] Group ID:Not on file Type:Medicare Address: [employer] 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 12/27/2019 1:45 PM * Full Code (Latest Code Status on File) Date Activated Date Inactivated Comments 07/28/2022 5:06 PM Question Answer Comments Code Status Confirmed With: Patient Care Teams Supervisor Production Relationship Specialty Start Date End Date Jeb Velázquez DO 24 [facility] [place] [address] PCP - General Family Medicine 04/22/23 Christie Downing MD [address] [place] [address] Mirtha@[email or web address] Primary Oncologist Medical Oncology 06/29/18 Elham Jaimes RN [address] [place] [address] Faviola@[email or web address] Associate Infusion Nurse 08/12/22 Mariann [place], KWAME [address] [place] [address] Ruddy@[email or web address] Research RN 12/09/22 Julianne Bunn, KWAME [address] [place] [address] Mame@[facility] Research RN 01/26/23 Cristin Ramsey RN [address] [place] [address] MANA@[facility] Primary Infusion Nurse 12/16/23 Elham Boyce, KWAME [address] [place] [address] Steve@[email or web address] Primary Infusion Nurse 06/26/24 Meghan DíazKWAME [address] [place] [address] [email or web address] Associate Infusion Nurse 06/26/24 Марина Maxwell, KWAME [address] [place] [address] Liss@[facility] Associate Infusion Nurse 06/26/24 Additional Source Comments The information contained in this document represents components of the legal health record. It is not the complete legal health record.[facility]
--- OUTSIDE RECORDS SUMMARY | 2025-07-17 09:29 | XMS_ITS | Encounter Summary ---
Author Organization [facility] Address [address] [address] Phone Care Team Providers Care Posting Clerk Name Role Phone Jeb Velázquez DO Primary Care Provider Christie Downing MD Unavailable [phone] Felipa Esqueda Unavailable [phone] Silvana Barton RN Unavailable [email or web address].[facility] Elham Jaimes RN Unavailable Fazal [email or web address].[facility] Mariann [place] RN Unavailable [phone] Julianne Bunn RN Unavailable [phone] Jeb Velázquez DO Primary Care Provider Cristin Ramsey RN Unavailable [phone] Elham Boyce RN Unavailable Lionel [email or web address].[facility] Meghan Díaz RN Unavailable ananda_archie [email or web address].[facility] Марина Maxwell RN Unavailable Magaly [email or web address].[facility] Encounter Details Date Type Department Care Team (Late st Contact Info) Description 10/07/2019 Documentation Central [facility], [facility] [place] [address] [facility], 2nd [place] [address] Veronica Mancia [address] [place] [address] [email or web address]@[email or web address] Social History Tobacco Use Types Packs/Day Years [...] 9:00 AM EST Blood Draw Laboratory Services, [address], 2nd [place] [address] Christie Downing MD [address] [place] [address] Mirtha@[facility] 09/13/2025 10:00 AM EST Office Visit [facility] [address] [place] [phone] Jessica Alcantara PA-C [address] [place] [address] Leela@[email or web address]. [facility] 09/19/2025 1:20 PM EST Office Visit [facility] [place] Internal [facility] [address] [place] [address] Stormy Allred PA-C [address] [place] [address] [email or web address] documented as of this encounter Visit Diagnoses [...] documented as of this encounter Care Teams Posting Clerk Relationship Specialty Start Date End Date Jeb Velázquez DO 24 [facility] [place] [address] PCP - General Family Medicine 06/29/18 04/21/23 Jeb Velázquez DO 24 [facility] [place] [address] PCP - General Family Medicine 04/22/23 Christie Downing MD [address] [place] [address] Mirtha@[email or web address] Primary Oncologist Medical Oncology 06/29/18 Felipa Esqueda, [facility] [address] [place] [address] [email or web address]@[email or web address] Esl Instructional Assistant Hematology and Oncology 11/29/19 12/27/23 Silvana Barton, RN [address] [place] [address] AVIS@[facility] Primary Infusion Nurse 08/04/22 02/07/24 Elham Jaimes, KWAME [address] [place] [address] Faviola@[email or web address] Associate Infusion Nurse 08/12/22 Mariann [place], KWAME [address] [place] [address] Ruddy@[facility] Research RN 12/09/22 Julianne Bunn, KWAME [address] [place] [address] Mame@[email or web address] Research RN 01/26/23 Cristin Ramsey RN [address] [place] [address] MANA@[facility] Primary Infusion Nurse 12/16/23 Elham Boyce, KWAME [address] [place] [address] Steve@[facility] Primary Infusion Nurse 06/26/24 Meghan Díaz, KWAME [address] [place] [address] [email or web address] Associate Infusion Nurse 06/26/24 Марина Maxwell, KWAME [address] [place] [address] Liss@[email or web address] Associate Infusion Nurse 06/26/24 documented as of this encounter Additional Source Comments The information contained in this document represents components of the legal health record. It is not the complete legal health record.[facility]
--- OUTSIDE RECORDS SUMMARY | 2025-07-17 09:29 | XMS_ITS ---
Author Organization [facility] Address [address] [place] [address] Phone Care Team Providers Care Patient Care Provider Name Role Phone Christie Downing MD Unavailable [phone] Elham Jaimes RN Unavailable Fazal [email or web address] Mariann [place] RN Unavailable [phone] Julianne Bunn RN Unavailable [phone] Jeb Velázquez DO Primary Care Provider Cristin Ramsey RN Unavailable [phone] Elham Boyce RN Unavailable Lionel [email or web address] Meghan Díaz RN Unavailable ananda_archie [email or web address].[facility] Марина Maxwell RN Unavailable Magaly [email or web address] Active Problems Patient Care Coordination No te [...] abdominal cramping following a weeklong trip to [place]. Managed with Metamucil at home. Abdomen non-tender. [...] evidence of CRS for > 8 hours Current Treatment and Therapy Plans No current plan information found. 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 Past Treatment and Therapy Plans Oncology Therapy Plan Supplemental Plan Name Start Date Discontinue Date Treatment Medications Discontinue Reason Plan Provider ZOLEDRONIC ACID (ZOMETA) 05/31/2021 06/01/2024 No medications scheduled. a. Therapy Complete Jessica Alcantara PA-C RESEARCH PLAN Plan Name Start Date Discontinue Date Treatment Medications Discontinue Reason Plan Provider Cycles -154 SAFETY RUN-IN 0: 1.5 MG/KG TECLISTAMAB (RP2D) 07/28/20 22 06/14/2025 ID-teclistamab () a. Therapy Complete Christie Downing MD 18 of 24 cycles started Resolved Problems Problem Noted Date Diagnosed Date [...]
--- OUTSIDE RECORDS SUMMARY | 2025-07-17 09:29 | XMS_ITS | Encounter Summary ---
Author Organization [facility] Address [address] [place] [address] Phone Care Team Providers Care Hospice Care Transitions Coordinator Name Role Phone Jeb Velázquez DO Primary Care Provider Christie Downing MD Unavailable [phone] Felipa Esqueda Unavailable [phone] Silvana Barton RN Unavailable [email or web address].[facility] Elham Jaimes RN Unavailable Fazal [email or web address].[facility] Mariann [place] RN Unavailable [phone] Julianne Bunn RN Unavailable [phone] Jeb Velázquez DO Primary Care Provider Cristin Ramsey RN Unavailable [phone] Elham Boyce RN Unavailable Lionel [email or web address].[facility] Meghan Díaz RN Unavailable ananda_archie [email or web address].[facility] Марина Maxwell RN Unavailable Magaly [email or web address].[facility] Encounter Details Date Type Department Care Team (Late st Contact Info) Description 08/27/2018 Procedure Pass DF IMG OUTSIDE IMG [address] [place] [address] Social History Tobacco Use Types Packs/Day Years Used Date Smoking Tobacco: Never Assessed Sex and Gender Information Value Date Recorded [...] 9:00 AM EST Blood Draw Laboratory Services, [address], 2nd [place] [address] Christie Downing MD [address] [place] [phone] Mirtha@[email or web address]. [facility] 09/13/2025 10:00 AM EST Office Visit [facility] C[facility] [address] [place] [phone] Jessica Alcantara PA-C [address] [place] [phone] Leela@[facility]. [facility] 09/19/2025 1:20 PM EST Office Visit [facility] Internal Medicine [address] [place] [address] Stormy Allred PA-C [address] [place] [address] [email or web address] documented as of this encounter Visit Diagnoses [...] 9:02 AM EDT CDiff-Risk 02/17/2024 02/17/2024 02/18/2024 9:5 8 AM EDT CDiff-Risk 02/20/2024 02/20/2024 02/21/2024 9:53 AM EDT documented as of this encounter Care Teams Hospice Care Transitions Coordinator Relationship Specialty Start Date End Date Jeb Velázquez DO 24 [facility] [place] [address] PCP - General Family Medicine 06/29/18 04/21/23 Jeb Velázquez DO 24 [facility] [place] [address] PCP - General Family Medicine 04/22/23 Christie Downing MD [address] [place] [address] Mirtha@[facility] Primary Oncologist Medical Oncology 06/29/18 Felipa Esqueda, MIX MAKER [address] [place] [address] [email or web address] Aluminum Boat Inspector Hematology and Oncology 11/29/19 12/27/23 Silvana Barton, KWAME [address] [place] [address] [email or web address] Primary Infusion Nurse 08/04/22 02/07/24 Elham Jaimes RN [address] [place] [address] Faviola@[facility] Associate Infusion Nurse 08/12/22 Mariann [place], RN [address] [place] [address] Ruddy@[facility] Research RN 12/09/22 Julianne Bunn, KWAME [address] [place] [address] Mame@[email or web address] Research RN 01/26/23 Cristin Ramsey RN [address] [place] [address] MANA@[facility] Primary Infusion Nurse 12/16/23 Elham Boyce, KWAME [address] [place] [address] Steve@[facility] Primary Infusion Nurse 06/26/24 Meghan Díaz, KWAME [address] [place] [address] [email or web address] Associate Infusion Nurse 06/26/24 Марина Maxwell, KWAME [address] [place] [phone] Liss@[email or web address] Associate Infusion Nurse 06/26/24 documented as of this encounter Additional Source Comments The information contained in this document represents components of the legal health record. It is not the complete legal health record.[facility]
--- OUTSIDE RECORDS SUMMARY | 2025-07-17 09:29 | XMS_ITS | Encounter Summary ---
Author Organization [facility] Address [address] [place] [address] Phone Care Team Providers Care Glass Tinter Name Role Phone Jeb Velázquez DO Primary Care Provider Christie Downing MD Unavailable [phone] Felipa Esqueda Unavailable [phone] Silvana Barton RN Unavailable [email or web address] Elham Jaimes RN Unavailable Fazal [email or web address].[facility] Mariann [place] RN Unavailable [phone] Julianne Bunn RN Unavailable [phone] Jeb Velázquez DO Primary Care Provider Cristin Ramsey RN Unavailable [phone] Elham Boyce RN Unavailable Lionel [email or web address].[facility] Meghan Díaz RN Unavailable ananda_archie [email or web address].[facility] Марина Maxwell RN Unavailable Magaly [email or web address].[facility] Encounter Details Date Type Department Care Team (Late st Contact Info) Description 08/27/2018 Procedure Pass DF IMG OUTSIDE IMG [address] [place] [address] Social History Tobacco Use Types Packs/Day Years [...] 9:00 AM EST Blood Draw Laboratory Services, [address] 2nd [place] [address] Christie Downing MD [address] [place] [phone] Mirtha@[facility]. [facility] 09/13/2025 10:00 AM EST Office Visit [facility] Cancers [address] [place] [phone] Jessica Alcantara PA-C [address] [place] [address] Leela@[facility]. [facility] 09/19/2025 1:20 PM EST Office Visit [facility] Internal Medicine [address] [place] [address] Stormy Allred PA-C [address] [place] [address] [email or web address] documented as of this encounter Visit [...] documented as of this encounter Care Teams Glass Tinter Relationship Specialty Start Date End Date Jeb Velázquez DO 24 [facility] [place] [address] PCP - General Family Medicine 06/29/18 04/21/23 Jeb Velázquez DO 24 [facility] [place] [address] PCP - General Family Medicine 04/22/23 Christie Downing MD [address] [place] [phone] Mirtha@[facility] Primary Oncologist Medical Oncology 06/29/18 Felipa Esqueda, PIN MACHINE TENDER [address] [place] [address] [email or web address] Model Maker [employer]lass Hematology and Oncology 11/29/19 12/27/23 Silvana Barton, KWAME [address] [place] [address] AVIS@[email or web address] Primary Infusion Nurse 08/04/22 02/07/24 Elham Jaimes RN [address] [place] [address] Faviola@[facility] Associate Infusion Nurse 08/12/22 Mariann [place], RN [address] [place] [address] Ruddy@[facility] Research RN 12/09/22 Julianne Bunn, KWAME [address] [place] [address] Mame@[email or web address] Research RN 01/26/23 Cristin Ramsey RN [address] [place] [address] MANA@[facility] Primary Infusion Nurse 12/16/23 Elham Boyce, KWAME [address] [place] [phone] Steve@[email or web address] Primary Infusion Nurse 06/26/24 Meghan Díaz, KWAME [address] [place] [address] [email or web address] Associate Infusion Nurse 06/26/24 Марина Maxwell, KWAME [address] [place] [phone] Liss@[facility] Associate Infusion Nurse 06/26/24 documented as of this encounter Additional Source Comments The information contained in this document represents components of the legal health record. It is not the complete legal health record.[facility]
[2025-07-17 13:40] LABS: Anion Gap 13 (12-20); Blood Urea Nitrogen 17 mg/dL (9-16); Calcium 9.3 mg/dL (8.4-10.2); Carbon Dioxide 27 mmol/L (22-29); Chloride 105 mmol/L (96-108); Estimated Glomerular Filt Rate > 60; Potassium 4.6 mmol/L (3.3-5.1); Sodium 140 mmol/L (135-145)
[2025-07-17 13:54] LABS: Creatinine, mg/dL 44.96
[2025-07-17 14:11] LABS: Total Volume 24 Hour Urine 3075 mL
[2025-07-17 14:12] LABS: Creatinine (CrCl) 1.06 mg/dL (0.5-1.4)
== END 2025-07-17 09:22 | disposition home or self-care (01) ==
LOC: HO.HKASLDS 09:21
PROVIDERS: PCP Internal Medicine; Visit Provider Internal Medicine Nephrology
DX: I12.9 Hypertensive chronic kidney disease with stage 1 through stage 4 chronic kidney disease, or unspecified chronic kidney disease (principal); N18.31 Chronic kidney disease, stage 3a
CPT/HCPCS: 80051; 82310; 82565; 82575; 84520; 86335

== ENCOUNTER 2025-07-20 10:10 | Outpatient (AMB) | payer MEDICARE, OTHER, SELFPAY ==
--- NOTE | 2025-07-20 10:12 | HO.NEPHOV_ITS ---
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 He has H/O IgA multiple myeloma and had treatment for it in [place]( trials X 2), which he has finished last year. He had follow up BMB and had been declared to be in remission. During the treatment in [place], he also had pneumonia with intra renal hemodynamic changes. He was thought to have vascular disease with narrowing of both carotid arteries.He also had episodes of AFib and has seen environment friendly landscape designer who felt he has CAD. His Biological Sciences Professor Dr Ambrose had initiated him on ACEI which he had been taking until recently when he developed hyperkalemia. He never had renal biopsy even when his light chains were high prior to initiation of his chemotherapeutic medication regimen couple of years ago. He does not take excess NSAID's. He has H/O hypertension and is on medications which is keeping his BP at goal. He has no hematuria, edema, dysuria , orthostatic symptoms. He denies SOB, PND, orthopnea, new skin rashes. His recent serum creatinine has been around 1.06 [facility] Medical History (Updated 07/20/25 @ 10:22 by Ben Ybarra MD) Sinusitis Rising PSA level Multiple myeloma Intercostal pain Hypertension Hyperlipidemia H/O diarrhea Great toe pain Atherosclerosis of both carotid arteries Surgical History (Updated 12/22/24 @ 09:54 by Ramona Franz MA) History of lung biopsy H/O colonoscopy Family History (Updated 12/22/24 @ 09:55 by Ramona Franz MA) Mother Diabetes Kidney disease Heart disease Brother Colon cancer Social History (Updated 12/22/24 @ 09:52 by Ramona Franz MA) Alcohol intake: current Patient Tobacco Use Status: Former Tobacco user Review of Systems Const All systems reviewed & are unremarkable except as noted in HPI and below Physical Exam Const General: comfortable and no acute distress Orientation/consciousness: patient oriented x3 HEENT Head: Yes normocephalic Mouth: Normal oral and palatal mucosa present Eyes EOM: EOMs intact bilaterally Neck Neck: Yes supple Resp Auscultation: clear to auscultation bilaterally Cardio Jugular venous distension: no JVD Rate: regular rate GI Palpation (GI): Soft to palpation Auscultation: normal bowel sounds General: Yes no CVA tenderness Back/Spine/Pelvis Back: no CVA tenderness Skin General skin exam: no rashes or lesions noted Neuro General: patient oriented x3 and moves all extremities Extrem General: Yes no pedal edema Results Reviewed Nephrology Results: Sodium, (135-145) 140 mmol/L 07/17/25 Potassium, (3.3-5.1) 4.6 mmol/L 07/17/25 Chloride, (96-108) 105 mmol/L 07/17/25 Carbon Dioxide, (22-29) 27 mmol/L 07/17/25 BUN, (9-16) 17 mg/dL H 07/17/25 Creatinine, (0.5-1.4) 1.06 mg/dL 07/17/25 Calcium, (8.4-10.2) 9.3 mg/dL 07/17/25 Assessment & Plan Assessment & Plan (1) Hypertension: Code(s): I10 - Essential (primary) hypertension Category: Medical Qualifiers: Hypertension type: primary hypertension Qualified Code(s): I10 - Essential (primary) hypertension (2) CKD (chronic kidney disease) stage 2, GFR 60-89 ml/min: Code(s): N18.2 - Chronic kidney disease, stage 2 (mild) Category: Medical Plan Adal has CKD likely from multifactorial etiology. He has vascular disease with hypertension. 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 He was on ACEI but has been on hold due to high K( on hold since 10/13/24. His recent serum K is normal.) He sparsely uses NSAID's and maintain good hydration. He has no CAD, CVA, CHF or PAD. I shall do Doppler of renal arteries. Last year he had SANTY with creatinine going up to 1.79 which has improved now( he had pneumonia- was on antibiotics & anti fungals)- he might have lost some GFR at that time. He does not take excess NSAID's and maintain good hydration. His BP is well controlled on metoprolol and Amlodipine. He will benefit from SGLT2 i which I may consider initiating with time. Answered all questions. Orders: Orders Creatinine 1 Year I10 - Essential (primary) hypertension, N18.2 - Chronic kidne y disease, stage 2 (mild) Hemoglobin A1c 1 Year I10 - Essential (primary) hypertension, N18.2 - Chronic kidney disease, stage 2 (mild) Blood Urea Nitrogen 1 Year I10 - Essential (primary) hypertension, N18.2 - Chronic kidney disease, stage 2 (mild) Electrolytes 1 Year I10 - Essential (primary) hypertension, N18.2 - Chronic kidney disease, stage 2 (mild) Calcium 1 Year I10 - Essential (primary) hypertension, N18.2 - Chronic kidney disease, stage 2 (mild) Protein Creatinine Ratio, Ur 1 Year I10 - Essential (primary) hypertension, N18.2 - Chronic kidney disease, stage 2 (mild) Coding Level of Care Code Est Pt Level 4 (28388) Diagnoses Primary hypertension I10 Hypertension type: primary hypertension CKD (chronic kidney disease) stage 2, GFR 60-89 ml/min N18.2
[2025-07-20 10:17] VITALS: BP 130/62; PULSE 52; O2SAT 99; BMI 25.1
--- OUTSIDE RECORDS SUMMARY | 2025-07-20 12:21 | XMS_ITS | Encounter Summary ---
Author Organization [facility] Address [address] [place] [address] [place] [address] Phone Care Team Providers Care District Plant Superintendent Name Role Phone Christie Downing MD Unavailable [phone] Elham Jaimes RN Unavailable Fazal [email or web address] Mariann Morris RN Unavailable [phone] Julianne Bunn RN Unavailable [phone] Jeb Velázquez DO Primary Care Provider Cristin Ramsey RN Unavailable [phone] Elham Boyce RN Unavailable Lionel [email or web address] Meghan Díaz RN Unavailable ananda_archie [email or web address] Марина Maxwell RN Unavailable Magaly [email or web address] Encounter Details Date Type Department Care Team (Late st Contact Info) Description 02/09/2024 Procedure Pass [facility] [address] [place] [address] Social History Tobacco Use Types Packs/Day Years [...] Risk Indicated 02/11/2024 10:29 PM EDT Hawa Saxean RN * [place] Suicide Severity Rating Scale (Screener/Recent Self-Report) Question [...] 1 Month) No 02/11/2024 10:29 PM Hawa Lquue RN 5. Active Suicidal Ideation with Specific Plan and Intent (Past 1 Month) No 02/11/2024 10:29 PM Hawa Luque RN 6. Suicidal Behavior (Lifetime) No 10:29 PM Hawa Luque RN documented as of this encounter Plan of Treatment Upcoming Encounters Date Type Department Care Team (Late st Contact Info) Description 09/13/2025 9:00 AM EST Blood Draw Laboratory Services, [address], 2nd [place] [address] Christie Downing MD [address] [place] [phone] [email or web address]. [facility] 09/13/2025 10:00 AM EST Office Visit [facility] [address] [place] [phone] Jessica Alcantara PA-C [address] [place] [phone] Leela@[facility]. [facility] 09/19/2025 1:20 PM EST Office Visit [facility] Medical [facility] Internal Medicine [address] [place] [address] Stormy Allred PA-C 40 [place] [address] [email or web address] documented as of this [...] documented as of this encounter Care Teams District Plant Superintendent Relationship Specialty Start Date End Date Jeb Velázquez DO 24 [facility] [place] [address] PCP - General Family Medicine 04/22/23 Christie Downing MD [address] [place] [address] [email or web address] Primary Oncologist Medical Oncology 06/29/18 Elham Jaimes RN [address] [place] [address] Faviola@[email or web address]. [facility] Associate Infusion Nurse 08/12/22 Mariann Morris RN [address] [place] [address] [email or web address].count includes the [facility] Research RN 12/09/22 Julianne Bunn RN [address] [place] [address] Mame@[email or web address] .[facility] Research RN 01/26/23 Cristin Ramsey RN [address] [place] [address] [email or web address] Primary Infusion Nurse 12/16/23 Elham Boyce, KWAME [address] [place] [phone] Steve@[email or web address] Primary Infusion Nurse 06/26/24 Meghan Díaz, KWAME [address] [place] [address] [email or web address] Associate Infusion Nurse 06/26/24 Марина Maxwell, KWAME [address] [place] [phone] Liss@[email or web address] Associate Infusion Nurse 06/26/24 documented as of this encounter Additional Source Comments The information contained in this document represents components of the legal health record. It is not the complete legal health record.[facility]
--- OUTSIDE RECORDS SUMMARY | 2025-07-20 12:21 | XMS_ITS | Encounter Summary ---
Author Organization [facility] Address [address] [place] [address] [place] [address] Phone Care Team Providers Care Supervisor Char House Name Role Phone Christie Downing MD Unavailable [phone] Elham Jaimes RN Unavailable Fazal [email or web address] Mariann Morris RN Unavailable [phone] Julianne Bunn RN Unavailable [phone] Jeb Velázquez DO Primary Care Provider Cristin Ramsey RN Unavailable [phone] Elham Boyce RN Unavailable Lionel [email or web address] Meghan Díaz RN Unavailable ananda_archie [email or web address] Марина Maxwell RN Unavailable Magaly [email or web address].[facility] Encounter Details Date Type Department Care Team (Late st Contact Info) Description 02/16/2024 Procedure Pass [facility] [address] [place] [address] Social History Tobacco Use Types Packs/Day Years [...] Blood Draw Laboratory Services, [facility] [place] [address] [facility], 2nd [place] [address] Christie Downing MD [address] [place] [phone] Mirtha@[email or web address]. [facility] 09/13/2025 10:00 AM EST Office Visit [facility] [address] [place] [phone] Jessica Alcantara PA-C [address] [place] [phone] Leela@[facility]. 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 02/10/2025 1:21 AM EDT CDiff-Risk 02/15/2024 02/15/2024 02/16/2024 9:02 AM EDT CDiff-Risk 02/17/2024 02/17/2024 02/18/2024 9:58 AM EDT CDiff-Risk 02/20/2024 02/20/2024 02/21/2024 9:53 AM EDT documented as of this encounter Care Teams Supervisor Char House Relationship Specialty Start Date End Date Jeb Velázquez DO 24 [facility] [place] [address] PCP - General Family Medicine 04/22/23 Christie Downing MD [address] [place] [phone] [email or web address] Primary Oncologist Medical Oncology 06/29/18 Elham Jaimes, RN [address] [place] [phone] Faviola@[email or web address] Associate Infusion Nurse 08/12/22 Mariann [place], KWAME [address] [place] [address] Ruddy@[facility] Research RN 12/09/22 Julianne Bunn, KWAME [address] [place] [phone] Mame@[facility] Research RN 01/26/23 Cristin Ramsey RN [address] [place] [phone] MANA@[facility] Primary Infusion Nurse 12/16/23 Elham Boyce, KWAME [address] [place] [address] Steve@[facility] Primary Infusion Nurse 06/26/24 Meghan Díaz, KWAME [address] [place] [address] [email or web address] Associate Infusion Nurse 06/26/24 Марина Maxwell, RN [address] [place] [phone] Liss@[email or web address] Associate Infusion Nurse 06/26/24 documented as of this encounter Additional Source Comments The information contained in this document represents components of the legal health record. It is not the complete legal health record.[facility]
--- OUTSIDE RECORDS SUMMARY | 2025-07-20 12:21 | XMS_ITS | Encounter Summary ---
Author Organization [facility] Address [address] [place] [address] [place] [phone] Phone Care Team Providers Care Fisher Eel Name Role Phone Christie Downing MD Unavailable [phone] Elham Jaimes RN Unavailable Fazal [email or web address].[facility] Mariann Morris RN Unavailable [phone] Julianne Bunn RN Unavailable [phone] Jeb Velázquez DO Primary Care Provider Cristin Ramsey RN Unavailable [phone] Elham Boyce RN Unavailable Lionel [email or web address].[facility] Meghan Díaz RN Unavailable ananda_archie [email or web address].[email or web address].[facility] Марина Maxwell RN Unavailable Magaly [email or web address].[facility] Encounter Details Date Type Department Care Team (Late st Contact Info) Description 02/16/2024 Procedure Pass [facility] Endoscopy Department [address] [place] [address] Social History Tobacco Use Types Packs/Day Years [...] EST Blood Draw Laboratory Services, [facility] [place] [address] [place] [address], 2nd [place] [address] Christie Downing MD [address] [place] [phone] Mirtha@[facility]. [email or web address] 09/13/2025 10:00 AM EST Office Visit [facility] C[facility] [address] [place] [phone] Jessica Alcantara PA-C [address] [place] [address] [place] [address] Leela@[facility]. 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 02/10/2025 1:21 AM EDT CDiff-Risk 02/15/2024 02/15/2024 02/16/2024 9:02 AM EDT CDiff-Risk 02/17/2024 02/17/2024 02/18/2024 9:58 AM EDT CDiff-Risk 02/20/2024 02/20/2024 02/21/2024 9:53 AM EDT documented as of this encounter Care Teams Fisher Eel Relationship Specialty Start Date End Date Jeb Velázquez DO 24 [facility] [place] [address] PCP - General Family Medicine 04/22/23 Christie Downing MD [address] [place] [phone] [email or web address] Primary Oncologist Medical Oncology 06/29/18 Elham Jaimes, RN [address] [place] [address] Faviola@[email or web address] Associate Infusion Nurse 08/12/22 Mariann [place], RN [address] [place] [address] Ruddy@[email or web address] Research RN 12/09/22 Julianne Bunn, KWAME [address] [place] [phone] Mame@[email or web address] Research RN 01/26/23 Cristni Ramsey RN [address] [place] [address] MANA@[facility] Primary Infusion Nurse 12/16/23 Elham Boyce, KWAME [address] [place] [phone] Steve@[email or web address] Primary Infusion Nurse 06/26/24 Meghan Díaz, KWAME [address] [place] [address] [email or web address] Associate Infusion Nurse 06/26/24 Марина Maxwell, RN [address] [place] [phone] Liss@[facility] Associate Infusion Nurse 06/26/24 documented as of this encounter Additional Source Comments The information contained in this document represents components of the legal health record. It is not the complete legal health record.[facility]
--- OUTSIDE RECORDS SUMMARY | 2025-07-20 12:21 | XMS_ITS | Encounter Summary ---
Author Organization [facility] Address [address] [place] [address] [place] [phone] Phone Care Team Providers Care Academic Counselor Name Role Phone Christie Downing MD Unavailable [phone] Elham Jaimes RN Unavailable Fazal [email or web address].[place] Mariann Morris RN Unavailable [phone] Julianne Bunn RN Unavailable [phone] Jeb Velázquez DO Primary Care Provider Cristin Ramsey RN Unavailable [phone] Elham Boyce RN Unavailable Lionel [email or web address] Meghan Díaz RN Unavailable ananda_archie [email or web address].[place] Марина Maxwell RN Unavailable Magaly [email or web address].[facility] Encounter Details Date Type Department Care Team (Late st Contact Info) Description 02/09/2024 Procedure Pass [facility] [address] [place] [address] Social History Tobacco Use Types Packs/Day Years [...] 10:29 PM EDT Hawa Saxena RN * [place] Suicide Severity Rating Scale (Screener/Recent Self-Report) Question [...] 9:00 AM EST Blood Draw Laboratory Services, [address], 2nd [place] [address] Christie Downing MD [address] [place] [phone] Mirtha@[email or web address]. [facility] 09/13/2025 10:00 AM EST Office Visit [facility] C[facility] [address] [place] [phone] Jessica Alcantara PA-C [address] [place] [phone] Leela@[facility]. [facility] 09/19/2025 1:20 PM EST Office Visit [facility] Medical [facility] Internal Medicine [address] [place] [address] Stormy Allred PA-C [address] [place] [address] [email or web address] documented as of this encounter Visit Diagnoses [...] documented as of this encounter Care Teams Academic Counselor Relationship Specialty Start Date End Date Jeb Velázquez DO 24 [facility] [place] [address] PCP - General Family Medicine 04/22/23 Christie Downing MD [address] [place] [address] Mirtha@[email or web address] Primary Oncologist Medical Oncology 06/29/18 Elham Jaimes RN [address] [place] [address] Faviola@[facility]. [facility] Associate Infusion Nurse 08/12/22 Mariann Morris RN [address] [place] [address] Ruddy@[facility] Research RN 12/09/22 Julianne Bunn RN [address] [place] [address] Mame@[facility] .[facility] Research RN 01/26/23 Cristin Ramsey RN [address] [place] [phone] [email or web address] Primary Infusion Nurse 12/16/23 Elham Boyce, KWAME [address] [place] [phone] Steve@[email or web address] Primary Infusion Nurse 06/26/24 Meghan Díaz, KWAME [address] [place] [address] [email or web address] Associate Infusion Nurse 06/26/24 Марина Maxwell, KWAME [address] [place] [phone] Liss@[facility] Associate Infusion Nurse 06/26/24 documented as of this encounter Additional Source Comments The information contained in this document represents components of the legal health record. It is not the complete legal health record.[facility]
--- OUTSIDE RECORDS SUMMARY | 2025-07-20 12:22 | XMS_ITS | Encounter Summary ---
Author Organization [facility] Address [address] [place] [address] [place] [address] Phone Care Team Providers Care Surface Plate Inspector Name Role Phone Christie Downing MD Unavailable [phone] Elham Jaimes RN Unavailable Fazal [email or web address]@[facility]ner.[facility] Mariann Morris RN Unavailable [phone] Julianne Bunn RN Unavailable [phone] Jeb Velázquez DO Primary Care Provider Cristin Ramsey RN Unavailable [phone] Elham Boyce RN Unavailable Lionel mata@[facility].sumner.[facility] Meghan Díaz RN Unavailable ananda_archie [email or web address]@[facility].sumner.[facility] Марина Maxwell RN Unavailable Magaly [email or web address].[facility] Encounter Details Date Type Department Care Team (Late st Contact Info) Description 02/17/2024 Procedure Pass [facility] [address] [place] [address] Social History Tobacco Use Types Packs/Day Years [...] EST Blood Draw Laboratory Services, [facility] [place] [address] [facility], 2nd [place] [address] Christie Downing MD [address] [place] [address] Mirtha@[facility]. [facility] 09/13/2025 10:00 AM EST Office Visit [facility] Blood Cancers [address] [place] [phone] Jessica Alcantara PA-C [address] [place] [address] Leela@[facility]. 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 02/10/2025 1:21 AM EDT CDiff-Risk 02/17/2024 02/17/2024 02/18/2024 9:58 AM EDT CDiff-Risk 02/20/2024 02/20/2024 02/21/2024 9:53 AM EDT documented as of this encounter Care Teams Surface Plate Inspector Relationship Specialty Start Date End Date Jeb Velázquez DO 24 [facility] [place] [address] PCP - General Family Medicine 04/22/23 Christie Downing MD [address] [place] [address] Mirtha@[facility] Primary Oncologist Medical Oncology 06/29/18 Elham Jaimes, RN [address] [place] [address] Faviola@[facility] Associate Infusion Nurse 08/12/22 Mariann Morris, RN [address] [place] [address] Ruddy@[facility] Research RN 12/09/22 Julianne Bunn, RN [address] [place] [address] Mame@[facility] Research RN 01/26/23 Cristin Ramsey RN [address] [place] [address] MANA@[facility] Primary Infusion Nurse 12/16/23 Elham Boyce, KWAME [address] [place] [address] Steve@[facility] Primary Infusion Nurse 06/26/24 Meghan Díaz, RN [address] [place] [address] [email or web address] Associate Infusion Nurse 06/26/24 Марина Maxwell, RN [address] [place] [address] Lsis@[email or web address] Associate Infusion Nurse 06/26/24 documented as of this encounter Additional Source Comments The information contained in this document represents components of the legal health record. It is not the complete legal health record.[facility]
--- OUTSIDE RECORDS SUMMARY | 2025-07-20 12:22 | XMS_ITS | Encounter Summary ---
Author Organization [facility] Address [address] [place] [address] Phone Care Team Providers Care Convolute Tube Winder Name Role Phone Jeb Velázquez DO Primary Care Provider Christie Downing MD Unavailable [phone] Felipa Esqueda Unavailable [phone] Silvana Barton RN Unavailable [email or web address].[facility] Elham Jaimes RN Unavailable Fazal [email or web address]@[email or web address].[facility] Mariann Morris RN Unavailable [phone] Julianne Bunn RN Unavailable [phone] Jeb Velázquez DO Primary Care Provider Cristin Ramsey RN Unavailable [phone] Elham Boyce RN Unavailable Lionel mata@[email or web address].[facility] Meghan Díaz RN Unavailable ananda_archie [email or web address]@[email or web address].[facility] Марина Maxwell RN Unavailable Magaly [email or web address].[facility] Reason for Visit * Reason Comments Medication Refill Encounter Details Date Type Department Care Team (Late st Contact Info) Description 10/04/2021 Refill [facility]gression of Blood Cancers, [facility] [place] [address] [place] [address], 7th [place] [address] Shanna Qureshi NP [address] [place] [address] Pam@[facility] Medication Refill Social History Tobacco Use Types [...] 9:00 AM EST Blood Draw Laboratory Services, [address], 2nd [place] [address] Christie Downing MD [address] [place] [address] Mirtha@[facility] 09/13/2025 10:00 AM EST Office Visit [facility] Blood Cancers [address] [place] [phone] Jessica Alcantara PA-C [address] [place] [address] Leela@[facility]. [facility] 09/19/2025 1:20 PM EST Office Visit [facility] Internal Medicine 40 [place] [address] Stormy Allred PA-C 40 [place] [address] [email or web address] documented as of this encounter Visit Diagnoses [...] documented as of this encounter Care Teams Convolute Tube Winder Relationship Specialty Start Date End Date Jeb Velázquez DO 24 No [facility] [place] [address] PCP - General Family Medicine 06/29/18 04/21/23 Jeb Velázquez DO 24 No [facility] [place] [address] PCP - General Family Medicine 04/22/23 Christie Downing MD [address] [place] [address] Mirtha@[facility] Primary Oncologist Medical Oncology 06/29/18 Felipa Esqueda, [facility] [address] [place] [address] Jesse@[facility] Conference Assistant Hematology and Oncology 11/29/19 12/27/23 Silvana Barton, RN 300 [place] [address] AVIS@[facility] Primary Infusion Nurse 08/04/22 02/07/24 Elham Jaimes, KWAME [address] [place] [address] Faviola@[facility] Associate Infusion Nurse 08/12/22 Mariann Morris, KWAME [address] [place] [address] Ruddy@[facility] Research RN 12/09/22 Julianne Bunn RN [address] [place] [address] Mame@[facility] Research RN 01/26/23 Cristin Ramsey RN [address] [place] [address] MANA@[facility] Primary Infusion Nurse 12/16/23 Elham Boyce RN [address] [place] [address] Steve@[facility] Primary Infusion Nurse 06/26/24 Meghan Díaz, KWAME [address] [place] [address] ishaan@[facility] Associate Infusion Nurse 06/26/24 Марина Maxwell, KWAME [address] [place] [address] Liss@[facility] Associate Infusion Nurse 06/26/24 documented as of this encounter Additional Source Comments The information contained in this document represents components of the legal health record. It is not the complete legal health record.[facility]
--- OUTSIDE RECORDS SUMMARY | 2025-07-20 12:22 | XMS_ITS | Clinical Summary ---
Author Organization [address] [place] [address] Address 300 [place] [address] Phone Care Team Providers Care Boom Crane Operator Name Role Phone Harris Lilly MD Primary Care Provider [phone] Allergies Active Allergy Reactions Criticality Noted Date [...] on Eliquis for stroke risk reduction for [id number] score of 3. Continue to monitor for abnormal bruising or bleeding. Continue metoprolol as prescribed. Assessment & Plan (12/27/2024 12:23 PM EDT): Triggered by underlying infections, and GI symptoms. He has not had a recurrent A-fib and is on low-dose metoprolol with normal heart rate. Will continue current regimen. He is due to follow-up with [facility] oncology service next month and we will [...] Description 06/30/2025 10:40 AM EDT Office Visit [facility] [address] [place] [phone] Bisi Monae, WATSON Atrial fibrillation with RVR [...] injury) (CMS/HCC V24) DX:SANTY (acute kidney injury) ([facility]) Social History Tobacco Use Types Packs/Day Years [...] GEMUSE QTc 390 ms GEMUSE P Wave [place] 29 degrees GEMUSE R Kenton -18 degrees GEMUSE T Kent[place] 22 degrees GEMUSE ECG Interpretation Sinus bradycardia Otherwise normal ECG When compared with ECG of 27-DEC-2024 09:26, No significant change was found Confirmed by OH MORRIS ([id number]) on 06/30/2025 4:13:16 PM GEMUSE 06/30/2025 10:3 0 AM EDT 06/30/2025 4:13 PM EDT Bisi Letha SPECIFICATIONS CHECKER ECG ORDERABLES Edited Result - Final GEMUSE * Hepatitis C Screening (07/04/2022) Hepatitis C Screening Abstracted Historical Provider MD HEALTH MAINTENANCE Final Result from Last 3 Months or Most Recently Relevant to Health Maintenance Insurance MEDICARE [facility] Care Teams Boom Crane Operator Relationship Specialty Start Date End Date Harris Lilly MD [address] [place] [address] [place] [address] PCP - General Internal Medicine 06/30/25
--- OUTSIDE RECORDS SUMMARY | 2025-07-20 12:22 | XMS_ITS | Encounter Summary ---
Author Organization [facility] Address [address] [address] Phone Care Team Providers Care Treating Machine Operator Name Role Phone Jeb Velázquez DO Primary Care Provider Christie Downing MD Unavailable [phone] Felipa Esqueda Unavailable [phone] Silvana Barton RN Unavailable AVIS@[facility].[place].[facility] Elham Jaimes RN Unavailable Fazal dickinson@[facility].[place].[facility] Mariann Morris RN Unavailable [phone] Julianne Bunn RN Unavailable [phone] Jeb Velázquez DO Primary Care Provider Cristin Ramsey RN Unavailable [phone] Elham Boyce RN Unavailable Lionel mata@[facility].[facility] Meghan Díaz RN Unavailable ananda_archie [email or web address] Марина Maxwell RN Unavailable Magaly vieyra@[facility].[facility] Encounter Details Date Type Department Care Team (Late st Contact Info) Description 12/16/2022 Documentation [facility] Progression of Blood Cancers, [facility] [place] [address] [place] [address], 7th [place] [address] Mariann Morris, RN [address] [place] [address] Ruddy@[facility] Social History Tobacco Use Types Packs/Day Years [...] 9:00 AM EST Blood Draw Laboratory Services, [address], 2nd [place] [address] Christie Downing MD [address] [place] [phone] Mirtha@[facility]. [facility] 09/13/2025 10:00 AM EST Office Visit [facility]ception [facility] Blood Cancers [address] [place] [phone] Jessica Alcantara PA-C [address] [place] [address] Leela@[facility]. [facility] 09/19/2025 1:20 PM EST Office Visit [facility] [place] Internal Medicine 40 [place] [address] Stormy Allred PA-C 40 [place] [address] [email or web address] documented as of this encounter Visit Diagnoses [...] documented as of this encounter Care Teams Treating Machine Operator Relationship Specialty Start Date End Date Jeb Velázquez DO 24 No [facility] [place] [address] PCP - General Family Medicine 06/29/18 04/21/23 Jeb Velázquez DO 24 No [facility] [place] [address] PCP - General Family Medicine 04/22/23 Christie Downing MD [address] [place] [address] Mirtha@[facility] Primary Oncologist Medical Oncology 06/29/18 Felipa Esqueda, [facility] [address] [place] [address] Jesse@[facility] Brick Kiln Burner Hematology and Oncology 11/29/19 12/27/23 Silvana Barton, RN [address] [place] [address] AVIS@[facility] Primary Infusion Nurse 08/04/22 02/07/24 Elham Jaimes, KWAME [address] [place] [address] Faviola@[facility] Associate Infusion Nurse 08/12/22 Mariann Morris, KWAME [address] [place] [address] Ruddy@[facility] Research RN 12/09/22 Julianne Bunn RN [address] [place] [address] Mame@[facility] Research RN 01/26/23 Cristin Ramsey RN [address] [place] [address] MANA@[facility] Primary Infusion Nurse 12/16/23 Elham Boyce RN [address] [place] [address] Steve@[facility] Primary Infusion Nurse 06/26/24 Meghan Díaz, KWAME [address] [place] [address] ishaan@[facility] Associate Infusion Nurse 06/26/24 Марина Maxwell, KWAME [address] [place] [phone] Liss@[facility] Associate Infusion Nurse 06/26/24 documented as of this encounter Additional Source Comments The information contained in this document represents components of the legal health record. It is not the complete legal health record.[facility]
--- OUTSIDE RECORDS SUMMARY | 2025-07-20 12:22 | XMS_ITS | Encounter Summary ---
Author Organization [facility] Address [address] [place] [address] Phone Care Team Providers Care Cafe Lead Name Role Phone Jeb Velázquez DO Primary Care Provider Christie Downing MD Unavailable [phone] Felipa Esqueda Unavailable [phone] Silvana Barton RN Unavailable [email or web address] Elham Jaimes RN Unavailable Fazal dickinson@[facility].[place].[facility] Mariann Morris RN Unavailable [phone] Julianne Bunn RN Unavailable [phone] Jeb Velázquez DO Primary Care Provider Cristin Ramsey RN Unavailable [phone] Elham Boyce RN Unavailable Lionel mata@[facility].[place].[facility] Meghan Díaz RN Unavailable ananda_archie dallas@[facility].[place].[facility] Марина Maxwell RN Unavailable Magaly [email or web address]@[email or web address].[email or web address].[facility] Encounter Details Date Type Department Care Team (Late st Contact Info) Description 08/27/2018 Procedure Pass DF [facility] OUTSIDE IMG [address] [place] [address] Social History Tobacco Use Types Packs/Day Years [...] 9:00 AM EST Blood Draw Laboratory Services, [address], 2nd [place] [address] Christie Downing MD [address] [place] [address] Mirtha@[facility]. [facility] 09/13/2025 10:00 AM EST Office Visit [facility] Blood Cancers [address] [place] [phone] Jessica Alcantara PA-C [address] [place] [phone] Leela@[facility]. [facility] 09/19/2025 1:20 PM EST Office Visit [facility] Internal Medicine 40 [place] [address] Stormy Allred PA-C 40 [place] [address] [email or web address] documented as of this encounter Visit Diagnoses [...] documented as of this encounter Care Teams Cafe Lead Relationship Specialty Start Date End Date Jeb Velázquez DO 24 [facility] [place] [address] PCP - General Family Medicine 06/29/18 04/21/23 Jeb Velázquze DO 24 [facility] [place] [address] PCP - General Family Medicine 04/22/23 Christie Downing MD [address] [place] [address] Mirtha@[facility] Primary Oncologist Medical Oncology 06/29/18 Felipa Esqueda, DRILL INSTRUCTOR [address] [place] [address] Jesse@[email or web address] Documentation Supervisor Hematology and Oncology 11/29/19 12/27/23 Silvana Barton, KWAME [address] [place] [address] AVIS@[facility] Primary Infusion Nurse 08/04/22 02/07/24 Elham Jaimes RN [address] [place] [address] Faviola@[facility] Associate Infusion Nurse 08/12/22 Mariann Morris, RN [address] [place] [address] Ruddy@[facility] Research RN 12/09/22 Julianne Bunn, KWAME [address] [place] [address] Mame@[facility] Research RN 01/26/23 Cristin Ramsey RN [address] [place] [address] MANA@[facility] Primary Infusion Nurse 12/16/23 Ehlam Boyce, KWAME [address] [place] [address] Steve@[facility] Primary Infusion Nurse 06/26/24 Meghan Díaz, KWAME [address] [place] [address] [email or web address] Associate Infusion Nurse 06/26/24 Марина Maxwell, KWAME [address] [place] [phone] Liss@[facility] Associate Infusion Nurse 06/26/24 documented as of this encounter Additional Source Comments The information contained in this document represents components of the legal health record. It is not the complete legal health record.[facility]
--- OUTSIDE RECORDS SUMMARY | 2025-07-20 12:22 | XMS_ITS | Encounter Summary ---
Author Organization [facility] Address [address] [place] [address] Phone Care Team Providers Care Travel Professional Name Role Phone Jeb Velázquez DO Primary Care Provider Christie Downing MD Unavailable [phone] Felipa Esqueda Unavailable [phone] Silvana Barton RN Unavailable AVIS@[facility] Elham Jaimes RN Unavailable Fazal dickinson@[facility].[facility] Mariann Morris RN Unavailable [phone] Julianne Bunn RN Unavailable [phone] Jeb Velázquez DO Primary Care Provider Cristin Ramsey RN Unavailable [phone] Elham Boyce RN Unavailable Lionel mata@[facility] Meghan Díaz RN Unavailable ananda_archie dallas@[facility].[facility] Марина Maxwell RN Unavailable Magaly vieyra@[facility].[place] Reason for Visit * Reason Onset Date Comments Research 01/17/2020 Encounter Details Date Type Department Care Team (Late st Contact Info) Description 01/17/2020 Documentation [facility], Division of Hematologic Oncology, [facility] [place] [address] [place] [address], [address] [place] [address] Mercy Rodriguez RN [email or web address]@[facility] Research Social History Tobacco Use Types Packs/Day Years [...] 9:00 AM EST Blood Draw Laboratory Services, [address], 2nd [place] [address] Christie Downing MD [address] [place] [address] Mirtha@[facility]. [facility] 09/13/2025 10:00 AM EST Office Visit [facility]ception [facility] Blood Cancers [address] [place] [phone] Jessica Alcantara PA-C [address] [place] [phone] Leela@[facility]. [facility] 09/19/2025 1:20 PM EST Office Visit [facility] [place] Internal Medicine 40 [place] [address] Stormy Allred PA-C 40 [place] [address] documented as of this encounter Visit Diagnoses [...] documented as of this encounter Care Teams Travel Professional Relationship Specialty Start Date End Date Jeb Velázquez DO 24 [facility] [place] [address] PCP - General Family Medicine 06/29/18 04/21/23 Jeb Velázquez DO 24 [facility] [place] [address] PCP - General Family Medicine 04/22/23 Christie Downing MD [address] [place] [address] Mirtha@[facility] Primary Oncologist Medical Oncology 06/29/18 Felipa Esqueda, [facility] [address] [place] [address] Jesse@[facility] Keel Press Operator Hematology and Oncology 11/29/19 12/27/23 Silvana Barton, RN [address] [place] [address] AVIS@[facility] Primary Infusion Nurse 08/04/22 02/07/24 Elham Jaimes, KWAME [address] [place] [phone] Faviola@[facility] Associate Infusion Nurse 08/12/22 Mariann Morris, KWAME [address] [place] [address] Ruddy@[facility] Research RN 12/09/22 Julianne Bunn, KWAME [address] [place] [address] Mame@[facility] Research RN 01/26/23 Cristin Ramsey RN [address] [place] [address] MANA@[facility] Primary Infusion Nurse 12/16/23 Elham Boyce, KWAME [address] [place] [address] Steve@[facility] Primary Infusion Nurse 06/26/24 Meghan Díaz, KWAME [address] [place] [address] ishaan@[facility] Associate Infusion Nurse 06/26/24 Марина Maxwell, RN [address] [place] [phone] Liss@[facility] Associate Infusion Nurse 06/26/24 documented as of this encounter Additional Source Comments The information contained in this document represents components of the legal health record. It is not the complete legal health record.[facility]
--- OUTSIDE RECORDS SUMMARY | 2025-07-20 12:22 | XMS_ITS ---
Author Organization [facility] Address [address] [place] [address] Phone Care Team Providers Care Physics Tutor Name Role Phone Christie Downing MD Unavailable [phone] Elham Jaimes RN Unavailable Fazal [email or web address].[place].[facility] Mariann Morris RN Unavailable [phone] Julianne Bunn RN Unavailable [phone] Jeb Velázquez DO Primary Care Provider Cristin Ramsey RN Unavailable [phone] Elham Boyce RN Unavailable Lionel mata@[facility].[facility] Meghan Díaz RN Unavailable ananda_archie dallas@[facility].[place] Марина Maxwell RN Unavailable Magaly vieyra@[facility] Active Problems Patient Care Coordination No te [...] Prilosec 20mg daily replaced with Nexium per [facility] formulary. #Chronic Hypophosphatemia and hypoMg Continue home K-Phos tablet and mgOx daily. Additional IV repletion PRN Enterocolitis 02/09/2024 Assessment & Plan (02/24/2024 2:52 PM EDT): Presented to clinic 02/08 with a new fever in the setting of 2.5 weeks of non- bloody diarrhea (~3 episodes daily) with abdominal cramping following a weeklong trip to [place]. Managed with Metamucil at home. Abdomen non-tender. [...]
--- OUTSIDE RECORDS SUMMARY | 2025-07-20 12:22 | XMS_ITS | Encounter Summary ---
Author Organization [facility] Address [address] [place] [address] [place] [address] Phone Care Team Providers Care Planning Rn Name Role Phone Christie Downing MD Unavailable Elham Jaimes RN Unavailable Fazal [email or web address] Mariann Morris RN Unavailable [phone] Julianne Bunn RN Unavailable [phone] Jeb Velázquez DO Primary Care Provider Cristin Ramsey RN Unavailable [phone] Elham Boyce RN Unavailable Lionel [email or web address] Meghan Díaz RN Unavailable ananda_archie [email or web address]@[email or web address] Марина Maxwell RN Unavailable Magaly [email or web address].[facility] Encounter Details Date Type Department Care Team (Late st Contact Info) Description 02/24/2024 Procedure Pass [facility] Echocardiography [address] [place] [address] Social History Tobacco Use Types Packs/Day Years [...] EST Blood Draw Laboratory Services, [facility] [place] [address] [place] [address], 2nd [place] [address] Christie Downing MD [address] [place] [address] Mirtha@[facility]. [facility] 09/13/2025 10:00 AM EST Office Visit [facility] [address] [place] [phone] Jessica Alcantara PA-C [address] [place] [address] Leela@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 Associate Infusion Nurse 08/12/22 Mariann Morris, RN [address] [place] [address] Ruddy@[facility] Research RN 12/09/22 Julianne Bunn, RN [address] [place] [address] Mame@[facility] Research RN 01/26/23 Cristin Ramsey RN [address] [place] [address] MANA@[facility] Primary Infusion Nurse 12/16/23 Elham Boyce, KWAME [address] [place] [address] Steve@[facility] Primary Infusion Nurse 06/26/24 Meghan Díaz, KWAME [address] [place] [address] ishaan@[facility] Associate Infusion Nurse 06/26/24 Марина Maxwell, RN [address] [place] [address] Liss@[facility] Associate Infusion Nurse 06/26/24 documented as of this encounter Additional Source Comments The information contained in this document represents components of the legal health record. It is not the complete legal health record.[facility]
--- OUTSIDE RECORDS SUMMARY | 2025-07-20 12:22 | XMS_ITS | Encounter Summary ---
Author Organization [facility] Address [address] [place] [address] Phone Care Team Providers Care Publishing Specialist Name Role Phone Jeb Velázquez DO Primary Care Provider Christie Downing MD Unavailable [phone] Felipa Esqueda Unavailable [phone] Silvana Barton RN Unavailable AVIS@[facility].[place].[facility] Elham Jaimes RN Unavailable Fazal [email or web address]@[facility].page.[facility] Mariann Morris RN Unavailable [phone] Julianne Bunn RN Unavailable [phone] Jeb Velázquez DO Primary Care Provider Cristin Ramsey RN Unavailable [phone] Elham Boyce RN Unavailable Lionel mata@[facility].page.[facility] Meghan Díaz RN Unavailable ananda_archie dallas@[facility].page.[facility] Марина Maxwell RN Unavailable Magaly [email or web address]@[facility] Encounter Details Date Type Department Care Team (Late st Contact Info) Description 08/27/2018 Procedure Pass [facility] OUTSIDE IMG [address] [place] [address] Social History Tobacco Use Types Packs/Day Years [...] 9:00 AM EST Blood Draw Laboratory Services, [address], 2nd [place] [address] Christie Downing MD [address] [place] [address] Mirtha@[facility]. [facility] 09/13/2025 10:00 AM EST Office Visit [facility] C[facility] [address] [place] [phone] Jessica Alcantara PA-C [address] [place] [phone] Leela@[facility]. [facility] 09/19/2025 1:20 PM EST Office Visit [facility] Internal Medicine 40 [place] [address] Stormy Allred PA-C 40 [place] [address] [email or web address] documented as of this encounter Visit Diagnoses [...] documented as of this encounter Care Teams Publishing Specialist Relationship Specialty Start Date End Date Jeb Velázquez DO 24 [facility] [place] [address] PCP - General Family Medicine 06/29/18 04/21/23 Jeb Velázquez DO 24 [facility] [place] [address] PCP - General Family Medicine 04/22/23 Christie Downing MD [address] [place] [address] Mirtha@[facility] Primary Oncologist Medical Oncology 06/29/18 Felipa Esqueda, SALES SERVICE COORDINATOR [address] [place] [address] Jesse@[facility] Laster Hand Hematology and Oncology 11/29/19 12/27/23 Silvana Barton, KWAME [address] [place] [address] AVIS@[facility] Primary Infusion Nurse 08/04/22 02/07/24 Elham Jaimes RN [address] [place] [address] Faviola@[facility] Associate Infusion Nurse 08/12/22 Mariann Morris, RN [address] [place] [address] Ruddy@[facility] Research RN 12/09/22 Julianne Bunn, KWAME [address] [place] [address] Mame@[facility] Research RN 01/26/23 Cristin Ramsey RN [address] [place] [address] MANA@[facility] Primary Infusion Nurse 12/16/23 Elham Boyce, KWAME [address] [place] [address] Steve@[facility] Primary Infusion Nurse 06/26/24 Meghan Díaz, KWAME [address] [place] [address] ishaan@[email or web address] Associate Infusion Nurse 06/26/24 Марина Maxwell, KWAME [address] [place] [phone] Liss@[facility] Associate Infusion Nurse 06/26/24 documented as of this encounter Additional Source Comments The information contained in this document represents components of the legal health record. It is not the complete legal health record.[facility]
--- OUTSIDE RECORDS SUMMARY | 2025-07-20 12:22 | XMS_ITS | Encounter Summary ---
Author Organization [facility] Address [address] [address] Phone Care Team Providers Care Boat Worker Name Role Phone Jeb Velázquez DO Primary Care Provider Christie Downing MD Unavailable [phone] Felipa Esqueda Unavailable [phone] Silvana Barton RN Unavailable [email or web address] Elham Jaimes RN Unavailable Fazal [email or web address] Mariann Morris RN Unavailable [phone] Julianne Bunn RN Unavailable [phone] Jeb Velázquez DO Primary Care Provider Cristin Ramsey RN Unavailable [phone] Elham Boyce RN Unavailable Lionel mata@[email or web address] Meghan Díaz RN Unavailable ananda_archie [email or web address] Марина Maxwell RN Unavailable Magaly [email or web address]@[facility].[place] Encounter Details Date Type Department Care Team (Late st Contact Info) Description 10/10/2019 Documentation Central Registration, [facility] Cancer [place] [address] [facility], 2nd [place] [address] Zeynep Roberts [address] [place] [address] [email or web address]@[facility] Social History Tobacco Use Types Packs/Day [...] 9:00 AM EST Blood Draw Laboratory Services, [address], 2nd [place] [address] Christie Downing MD [address] [place] [phone] Mirtha@[facility] 09/13/2025 10:00 AM EST Office Visit [facility] Cancers [address] [place] [phone] Jessica Alcantara PA-C [address] [place] [phone] Leela@[facility]. [facility] 09/19/2025 1:20 PM EST Office Visit [facility] [place] Internal Medicine 40 [place] [address] Stormy Allred PA-C 40 [place] [address] documented as of this encounter Visit Diagnoses [...] documented as of this encounter Care Teams Boat Worker Relationship Specialty Start Date End Date Jeb Velázquez DO 24 [facility] [place] [facility] [place] [address] PCP - General Family Medicine 06/29/18 04/21/23 Jeb Velázquez DO [address] [facility] [place] [facility] [place] [address] PCP - General Family Medicine 04/22/23 Christie Downing MD [address] [place] [phone] Mirtha@[facility] Primary Oncologist Medical Oncology 06/29/18 Felipa Esqueda, [facility] [address] [place] [address] Jesse@[email or web address] Cardiovascular Or Nurse Hematology and Oncology 11/29/19 12/27/23 Silvana Barton, KWAME [address] [place] [address] AVIS@[facility] Primary Infusion Nurse 08/04/22 02/07/24 Elham Jaimes, KWAME [address] [place] [address] Faviola@[facility] Associate Infusion Nurse 08/12/22 Mariann Morris, KWAME [address] [place] [address] Ruddy@[facility] Research RN 12/09/22 Julianne Bunn RN [address] [place] [address] Mame@[facility] Research RN 01/26/23 Cristin Ramsey RN [address] [place] [address] MANA@[facility] Primary Infusion Nurse 12/16/23 Elham Boyce, KWAME [address] [place] [address] Steve@[facility] Primary Infusion Nurse 06/26/24 Meghan Díaz, KWAME [address] [place] [address] ishaan@[facility] Associate Infusion Nurse 06/26/24 Марина Maxwell, KWAME [address] [place] [address] Liss@[facility] Associate Infusion Nurse 06/26/24 documented as of this encounter Additional Source Comments The information contained in this document represents components of the legal health record. It is not the complete legal health record.[facility]
--- OUTSIDE RECORDS SUMMARY | 2025-07-20 12:22 | XMS_ITS | Encounter Summary ---
Author Organization [facility] Address [address] [place] [address] [place] [address] Phone Care Team Providers Care Bill Of Lading Clerk Name Role Phone Christie Downing MD Unavailable [phone] Elham Jaimes RN Unavailable Fazal [email or web address] Mariann Morris RN Unavailable [phone] Julianne Bunn RN Unavailable [phone] Jeb Velázquez DO Primary Care Provider Cristin Ramsey RN Unavailable [phone] Elham Boyce RN Unavailable Lionel mata@[facility] Meghan Díaz RN Unavailable ananda_archie dallas@[facility] Марина Maxwell RN Unavailable Magaly vieyra@[facility].[place].[facility] Encounter Details Date Type Department Care Team (Late st Contact Info) Description 02/17/2024 Procedure Pass [facility] Periop [address] [place] [address] Social History Tobacco Use Types Packs/Day Years [...] EST Blood Draw Laboratory Services, [facility] [place] [address] [place] [address], 2nd [place] [address] Christie Downing MD [address] [place] [address] Mirtha@[facility]. [facility] 09/13/2025 10:00 AM EST Office Visit [facility] Cancers [address] [place] [phone] Jessica Alcantara PA-C [address] [place] [address] [place] [address] Leela@[facility]. 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 02/10/2025 1:21 AM EDT [facility] 02/17/2024 02/17/2024 02/18/2024 9:58 AM EDT [facility] 02/20/2024 02/20/2024 02/21/2024 9:53 AM EDT documented as of this encounter Care Teams Bill Of Lading Clerk Relationship Specialty Start Date End Date Jeb Velázquez DO 24 [facility] [place] [address] PCP - General Family Medicine 04/22/23 Christie Downing MD [address] [place] [address] Mirtha@[facility] Primary Oncologist Medical Oncology 06/29/18 Elham Jaimes, RN [address] [place] [address] Faviola@[facility] Associate Infusion Nurse 08/12/22 Mariann Morris, RN [address] [place] [address] Ruddy@[facility] Research RN 12/09/22 Julianne Bunn, KWAME [address] [place] [address] Mame@[facility] Research RN 01/26/23 Cristin Ramsey RN [address] [place] [address] MANA@[facility] Primary Infusion Nurse 12/16/23 Elham Boyce, KWAME [address] [place] [address] Steve@[email or web address] Primary Infusion Nurse 06/26/24 Meghan Díaz, RN [address] [place] [address] [email or web address] Associate Infusion Nurse 06/26/24 Марина Maxwell, KWAME [address] [place] [address] Liss@[facility] Associate Infusion Nurse 06/26/24 documented as of this encounter Additional Source Comments The information contained in this document represents components of the legal health record. It is not the complete legal health record.[facility]
--- OUTSIDE RECORDS SUMMARY | 2025-07-20 12:23 | XMS_ITS | Encounter Summary ---
Author Organization [facility] Address [address] [address] Phone Care Team Providers Care Kitchen Aide Name Role Phone Jeb Velázquez DO Primary Care Provider Christie Downing MD Unavailable [phone] Felipa Esqueda Unavailable [phone] Silvana Barton RN Unavailable AVIS@[facility] Elham Jaimes RN Unavailable Fazal dickinson@[facility].[place].[facility] Mariann Morris RN Unavailable [phone] Julianne Bunn RN Unavailable [phone] Jeb Velázquez DO Primary Care Provider Cristin Ramsey RN Unavailable [phone] Elham Boyce RN Unavailable Lionel mata@[facility].[place].[facility] Meghan Díaz RN Unavailable ananda_archie dallas@[facility].[place].[facility] Марина Maxwell RN Unavailable Magaly [email or web address]@[email or web address] Encounter Details Date Type Department Care Team (Late st Contact Info) Description 10/07/2019 Documentation Central Registration, [facility] [place] [address] [facility], 2nd [place] [address] Veronica Mancia [address] [place] [address] Daryl@[facility] Social History Tobacco Use Types Packs/Day [...] AM EST Blood Draw Laboratory Services, [address], 2nd [place] [address] Christie Downing MD [address] [place] [phone] Mirtha@[facility] 09/13/2025 10:00 AM EST Office Visit [facility] Cancers [address] [place] [phone] Jessica Alcantara PA-C [address] [place] [address] Leela@[facility]. [facility] 09/19/2025 1:20 PM EST Office Visit [facility] [place] Internal Medicine 40 [place] [address] Stormy Allred PA-C 40 [place] [address] [email or web address] documented as of this [...] documented as of this encounter Care Teams Kitchen Aide Relationship Specialty Start Date End Date Jeb Velázquez DO 24 [facility] [place] [address] PCP - General Family Medicine 06/29/18 04/21/23 Jeb Velázquez DO 24 [facility] [place] [address] PCP - General Family Medicine 04/22/23 Christie Downing MD [address] [place] [address] Mirtha@[facility] Primary Oncologist Medical Oncology 06/29/18 Felipa Esqueda, [facility] [address] [place] [address] Jesse@[facility] Icu Nurse Hematology and Oncology 11/29/19 12/27/23 Silvana Barton, RN [address] [place] [address] AVIS@[facility] Primary Infusion Nurse 08/04/22 02/07/24 Elham Jaimes, KWAME [address] [place] [address] Faviola@[facility] Associate Infusion Nurse 08/12/22 Mariann Morris, KWAME [address] [place] [address] Ruddy@[facility] Research RN 12/09/22 Julianne Bunn, KWAME [address] [place] [address] Mame@[facility] Research RN 01/26/23 Cristin Ramsey RN [address] [place] [address] MANA@[facility] Primary Infusion Nurse 12/16/23 Elham Boyce, KWAME [address] [place] [address] Steve@[facility] Primary Infusion Nurse 06/26/24 Meghan Díaz, KWAME [address] [place] [address] ishaan@[facility] Associate Infusion Nurse 06/26/24 Марина Maxwell, KWAME [address] [place] [address] Liss@[facility] Associate Infusion Nurse 06/26/24 documented as of this encounter Additional Source Comments The information contained in this document represents components of the legal health record. It is not the complete legal health record.[facility]
--- OUTSIDE RECORDS SUMMARY | 2025-07-20 12:23 | XMS_ITS | Clinical Summary ---
Author Organization [facility] Address [address] [place] [address] Phone Care Team Providers Care Pig Handler Name Role Phone Christie Downing MD Unavailable [phone] Elham Jaimes RN Unavailable [email or web address] Mariann Morris RN Unavailable [phone] Julianne Bunn RN Unavailable [phone] Jeb Velázquez DO Primary Care Provider Cristin Ramsey RN Unavailable Elham Boyce RN Unavailable [email or web address] [email or web address] Meghan Díaz RN Unavailable [email or web address] Марина Maxwell RN Unavailable Magaly [email or web address] Allergies Active Allergy Reactions Criticality Noted Date [...] Prilosec 20mg daily replaced with Nexium per [facility] formulary. #Chronic Hypophosphatemia and hypoMg Continue home [...] - 06/14/2025 11:59 PM EDT Hospital Encounter [facility] [address] [place] [address] Christie Downing MD Discharge Disposition: Home or Self Care 06/14/2025 8:53 AM EDT - 06/14/2025 12:44 PM EDT Hospital Encounter Procedure Suite, [facility] [place] [address] [facility], [address]th [place] [address] Brionna Littlejohn, Christie Gr MD Discharge Disposition: Home or Self Care 06/14/2025 8:00 AM EDT Office Visit [facility] [address] [place] [phone] Jessica Alcantara PA-C Ghobrial, Irene M, MD Asymptomatic multiple myeloma (Primary Dx); Iron deficiency anemia, unspecified iron deficiency anemia type 06/07/2025 Orders Only [facility] [address] [place] [address] Christie Downing MD Smoldering multiple myeloma (SMM) [...] Blood Pressure 151/75 06/14/2025 9:42 AM EDT ANIMAL HUSBANDMAN present Pulse 75 06/14/2025 9:42 AM EDT [...] AM EST Blood Draw Laboratory Services, [address] 2[address] [place] [address] Christie Downing MD [address] [place] [address] [email or web address] 09/13/2025 10:00 AM EST Office Visit [facility] [address] [place] [phone] Jessica Alcantara PA-C [address] [place] [address] [email or web address] 09/19/2025 1:20 PM EST Office Visit [facility] Internal Medicine [address] [place] [address] Stormy Allred PA-C [address] [place] [address] [email or web address] Maintenance Due Date Last Done Comments [...] Glucose, POCT 97 70 - 100 mg/dL [facility] NURSING DEPARTMENT 06/14/2025 1:11 PM EDT 06/14/2025 1:17 PM EDT us Christie Downing MD POINT OF CARE TEST ORDERABLE S Final Result Performing Organization Address City/State/[facility] Co de Phone Number [facility] NURSING DEPARTMENT [address] [place] [address] * BONE MARROW PROCEDURES (06/14/2025 9:25 AM [...] MARROW MRD (06/14/2025 9:14 AM EDT) Pathologist [facility] Clonoseq Bm Mrd SEE MANUAL REPORT [facility] Blood 06/14/2025 9:14 AM EDT 06/14/2025 10:39 AM EDT us Christie Downing MD LAB BLOOD ORDERABLES Final R esult Performing Organization Address [facility] Co de Phone Number [facility] [address] [place] [address] * Bone marrow aspirate (06/14/2025 9:14 AM EDT) Pathologist [facility] BONE MARROW DIFF SEE PATHOLOGY REPORT [facility] LIC# [id number] 06/14/2025 9:14 AM EDT 06/14/2025 10:11 AM EDT us Brionna Littlejohn NP BODY FLUIDS AND STOOLS ORDERABLES Final Result Performing Organization Address [facility] Co de Phone Number [facility] LIC# [id number] [address] [place] [address] * Bone Marrow (06/14/2025 9:14 AM EDT) [facility] Final Diagnosis A-C. BONE MARROW CORE BIOPSY [...] cells (PAX5/CD5 double stain examined), favor reactive. [place]/lambda in situ hybridization shows few scattered, apparently [...] are without significant morphologic abnormalities. 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 [facility] PATHOLOGY Operation None provided. [facility] PATHOLOGY Tissue Submitted A/1. Bone marrow biopsy B/2. Bone marrow aspirate C/3. Peripheral blood smear [facility] PATHOLOGY Gross Description The specimen is received [...] immunofluorescence and in-situ hybridization tests performed at [facility] were developed and their performance characteristics determined by the Immunohistochemistry Laboratories in the Department of Pathology at [facility]. They have not been cleared or approved by the U.S. Food and Drug Administration (FDA). The FDA has determined that such clearance or approval is not necessary. [facility] PATHOLOGY Procedure Comments ProcCreate a paraffin block - [facility] Decalcification of a specimen - [facility] (order for accession only, not for recut) Giemsa Level 1 - [facility] PAX5 CD5 double stain - [facility] [place] In situ hybridization (Pinkus) - [facility] Lambda in situ hybridization (Pinkus) - [facility] Bone Marrow Stained Slide - [facility] Peripheral Blood Stained Slide - [facility] Touch Prep on bone marrow aspirate, pro charge Bone Marrow Unstained Slide - [facility] (order for accession only, not for recut) H&E stain on level 2 slide - [facility] (for accession only, not for recut) No bake, 63 degrees for Pinkus lab - [facility] PATHOLOGY Report Accession No: [id number] Date: 1950 Sex: Male [facility] Department of Pathology [address] [place], [place] [address]IA License No.: [id number] Salesperson Floor Coverings: Dr. Karl Littlejohn M.D., Ph.D. Physician: CHRISTIE [...] cells (PAX5/CD5 double stain examined), favor reactive. [place]/lambda in situ hybridization shows few scattered, apparently [...] are without significant morphologic abnormalities. FLOW CYTOMETRY ([id number], marrow): Flow cytometric analysis of this bone [...] Laboratories in the Department of Pathology at [facility]. They have not been cleared or approved by the U.S. Food and Drug Administration (FDA). The FDA has determined that such clearance or approval is not necessary. Final Diagnosis by Marine Mulligan M.D., Electronically signed on Friday June 20, 2025 at 05:03:43PM [facility] PATHOLOGY Conversion Type (Other) 06/14/2025 9:14 AM EDT 06/14/2025 Christie Downing MD PATHOLOGY ORDERABLES Edited Result - Final [facility] PATHOLOGY * Lab Add On: serum iron, TIBC and ferritin (06/14/2025 8:21 AM EDT) TEST REQUESTED SERUM IRON, TIBC AND FERRITIN [facility] LIC# [id number] Comments (Chemistry) TEST TO BE ADDED ON TO EXISTING SPECIMEN [facility] LIC# [id number] Blood 06/14/2025 8:21 AM EDT 06/14/2025 8:58 AM EDT Jessica Alcantara PA-C LAB BLOOD ORDERABLES Edite d Result - Final Performing Organization Address City/[facility]/ZIP Co de Phone Number [facility] LIC# [id number] [address] [place] [address] * PMM3L MGUS (06/14/2025 7:41 AM EDT) Research Test FOR RESEARCH STUDY [facility] LIC# [id number] Blood 06/14/2025 7:41 AM EDT 06/14/2025 7:45 AM EDT Christie Downing MD LAB BLOOD ORDERABLES Final R esult Performing Organization Address City/[facility] Co de Phone Number [facility] LIC# [id number] [address] [place] [address] * (ABNORMAL) SPEP panel with immunofixation (06/14/2025 7:41 AM EDT) TOTAL PROTEIN 6.7 6.4 - 8.3 g/dL [facility] SPEP SEE PATHOLOGY REPORT [facility] IMMUNOFIXATION SEE PATHOLOGY REPORT [facility] IgA 28(L) 70 - 400 mg/dL [facility] IMMUNOGLOBULIN G 279(L) 700 - 1,600 mg/dL [facility] IMMUNOGLOBULIN M 24(L) 40 - 230 mg/dL [facility] Blood 06/14/2025 7:41 AM EDT 06/14/2025 7:45 AM EDT Christie Downing MD LAB BLOOD ORDERABLES Final R esult [facility] [address] [place] [address] * X-Label/study (06/14/2025 7:41 AM EDT) EXTRA TUBES NEEDED FOR RESEARCH STUDY [facility] LIC# [id number] Resulting Agency D[facility] LIC# [id number] Blood 06/14/2025 7:41 AM EDT 06/14/2025 7:45 AM EDT Christie Downing MD LAB BLOOD ORDERABLES Final R esult [facility] LIC# [id number] [address] [place] [address] * (ABNORMAL) Comprehensive metabolic panel (06/14/2025 7:41 AM EDT) SODIUM 139 136 - 145 mmol/L [facility] LIC# [id number] POTASSIUM 4.1 3.4 - 5.1 mmol/L [facility] LIC# [id number] CHLORIDE 102 98 - 107 mmol/L [facility] LIC# [id number] CO2 23 22 - 31 mmol/L [facility] LIC# [id number] BUN 18 6 - 23 mg/dL [facility] LIC# [id number] CREATININE 1.11 0.50 - 1.20 mg/dL [facility] LIC# [id number] GLUCOSE 115(H) 70 - 100 mg/dL [facility] LIC# [id number] ALBUMIN 4.5 3.5 - 5.2 g/dL [facility] LIC# [id number] TOTAL PROTEIN 6.7 6.4 - 8.3 g/dL [facility] LIC# [id number] CALCIUM 9.3 8.8 - 10.7 mg/dL [facility] LIC# [id number] ALKALINE PHOSPHATASE 74 40 - 129 U/L [facility] LIC# [id number] TOTAL BILIRUBIN 1.2 0.2 - 1.2 mg/dL [facility] LIC# [id number] AST 38 <41 U/L [facility] LIC# [id number] ALT 11 <42 U/L [facility] LIC# [id number] GLOBULIN 2.2(L) 2.3 - 4.2 g/dL [facility] LIC# [id number] EGFR 70 >59 mL/min/1.7 3m2 [facility] LIC# [id number] Comment:Estimated glomerular filtration rate calculated using the CKD-EPI refit equation. ANION GAP 14 7 - 17 mmol/L [facility] LIC# [id number] Blood 06/14/2025 7:41 AM EDT 06/14/2025 7:45 AM EDT us Christie Downing MD LAB BLOOD ORDERABLES Final R esult [facility] LIC# [id number] [address] [place] [address] * Iron and iron binding capacity (06/14/2025 7:41 AM EDT) IRON 78 59 - 158 ug/dL [facility] LIC# [id number] IRON BINDING CAPACITY 432 220 - 460 ug/dL [facility] LIC# [id number] TRANSFERRIN SATURAT. 18 14 - 50 % [facility] LIC# [id number] 06/14/2025 7:41 AM EDT 06/14/2025 7:45 AM EDT Christie Downing MD LAB BLOOD ORDERABLES Final R esult [facility] LIC# [id number] [address] [place] [address] * (ABNORMAL) Free light chains, serum (06/14/2025 7:41 AM EDT) FREE KAPPA LT CHAIN 6.1 3.3 - 19.4 mg/L [facility] FREE LAMBDA LT CHAIN 4.5(L) 5.7 - 26.3 mg/L [facility] FREE KAPPA LAMBDA RAT 1.36 0.26 - 1.65 [facility] Blood 06/14/2025 7:41 AM EDT 06/14/2025 7:45 AM EDT Christie Downing MD LAB BLOOD ORDERABLES Final R esult Performing Organization Address City/[facility] Co de Phone Number [facility] [address] [place] [address] * (ABNORMAL) CBC and differential (06/14/2025 7:41 AM EDT) WBC 4.53 4.00 - 10.00 K/uL [facility] LIC# [id number] RBC 4.60 4.50 - 6.40 M/uL [facility] LIC# [id number] HGB 14.1 13.5 - 18.0 g/dL [facility] LIC# [id number] HCT 39.8(L) 40.0 - 54.0 % [facility] LIC# [id number] PLT 223 150 - 450 K/uL [facility] LIC# [id number] MCV 86.5 80.0 - 100.0 fL [facility] LIC# [id number] MCH 30.7 27.0 - 32.0 pg [facility] LIC# [id number] MCHC 35.4 32.0 - 36.0 g/dL [facility] LIC# [id number] RDW 13.1 11.5 - 14.5 % [facility] LIC# [id number] MPV 9.5 8.4 - 12.0 fL [facility] LIC# [id number] NRBC 0.00 0 /100 WBCs [facility] LIC# [id number] ABSOLUTE NRBC 0.00 0 K/uL [facility] LIC# [id number] DIFF METHOD Auto [facility] LIC# [id number] NEUTS 66.4 48.0 - 76.0 % [facility] LIC# [id number] LYMPHS 19.6 18.0 - 41.0 % [facility] LIC# [id number] MONOS 11.3(H) 4.0 - 11.0 % [facility] LIC# [id number] EOS 1.8 0.0 - 5.0 % [facility] LIC# [id number] BASOS 0.7 0.0 - 1.5 % [facility] LIC# [id number] % IMMATURE GRANS 0.2 0.0 - 1.0 % [facility] LIC# [id number] ABSOLUTE NEUTS 3.01 1.92 - 7.60 K/uL [facility] LIC# [id number] ABSOLUTE LYMPHS 0.89 0.72 - 4.10 K/uL [facility] LIC# [id number] ABSOLUTE MONOS 0.51 0.16 - 1.10 K/uL [facility] LIC# [id number] ABSOLUTE EOS 0.08 0.00 - 0.50 K/uL [facility] LIC# [id number] ABSOLUTE BASOS 0.03 0.00 - 0.15 K/uL [facility] LIC# [id number] ABS IMMATURE GRANS 0.01 0.00 - 0.10 K/uL [facility] LIC# [id number] Blood 06/14/2025 7:41 AM EDT 06/14/2025 7:45 AM EDT us Christie Downing MD LAB BLOOD ORDERABLES Final R esult Performing Organization Address [facility] Co de Phone Number [facility] LIC# [id number] [address] [place] [address] * Phosphorus (06/14/2025 7:41 AM EDT) PHOSPHORUS 3.1 2.5 - 4.5 mg/dL [facility] LIC# [id number] Blood 06/14/2025 7:41 AM EDT 06/14/2025 7:45 AM EDT us Christie Downing MD LAB BLOOD ORDERABLES Final R esult Performing Organization Address [facility] Co de Phone Number [facility] LIC# [id number] [address] [place] [address] * Magnesium (06/14/2025 7:41 AM EDT) MAGNESIUM 2.2 1.7 - 2.6 mg/dL [facility] LIC# [id number] Blood 06/14/2025 7:41 AM EDT 06/14/2025 7:45 AM EDT us Christie Downing MD LAB BLOOD ORDERABLES Final R esult Performing Organization Address [facility] Co de Phone Number [facility] LIC# [id number] [address] [place] [address] * (ABNORMAL) Ferritin (06/14/2025 7:41 AM EDT) FERRITIN 19(L) 30 - 400 ug/L [facility] LIC# [id number] 06/14/2025 7:41 AM EDT 06/14/2025 7:45 AM EDT us Christie Downing MD LAB BLOOD ORDERABLES Final R esult Performing Organization Address City/[facility] Co de Phone Number [facility] LIC# [id number] [address] [place] [address] * (ABNORMAL) Bilirubin, direct (06/14/2025 7:41 AM EDT) DIRECT BILIRUBIN 0.4(H) 0.0 - 0.3 mg/dL [facility] LIC# [id number] Blood 06/14/2025 7:41 AM EDT 06/14/2025 7:45 AM EDT us Christie Downing MD LAB BLOOD ORDERABLES Final R esult Performing Organization Address [facility] Co de Phone Number [facility] LIC# [id number] [address] [place] [address] * Flow Cytometry (06/14/2025 12:00 AM EDT) 06/14/2025 06/14/2025 Narrative [facility] - 06/14/2025 3:28 PM EDT CASE: [id number] PATIENT: ADAL THORNE Date: 1950 Sex: Male [facility] Department of Pathology [address] [place] [address] CLIA License No.: [id number] Salesperson Floor Coverings: Ariane Lawson MD, PhD Pathologist: Arthur Bassett [...] This case was prepared by Cathleen Lancaster MT([facility]). Flow cytometric assessment of the following antigens was incorporated into the evaluation and interpretation of this specimen: CD19, CD27, CD38, CD45, CD56. CD81, CD117, CD138, cytoplasmic kappa light chain, cytoplasmic lambda light chain. The technical component of this test was performed at [facility], [address] [place] [address] (CLIA Errand Runner: Ariane Lawson MD, PhD). This test was developed and its performance characteristics determined by [facility]. It has not been cleared or approved by the U.S. Food and Drug Administration (FDA). The FDA has determined that such clearance or approval is not necessary; the performing laboratory has established and verified the test's accuracy and precision. This test is for clinical purposes, and should not be regarded as investigational or for research. The [facility] laboratory and [facility] laboratory are both certified under CLIA-88 as [...] Downing MD PATHOLOGY ORDERABLES Final R esult [facility] [address] [place] [address] * Protein Electrophoresis (06/14/2025 12:00 AM EDT) 06/14/2025 06/14/2025 Narrative [facility] - 06/21/2025 8:35 PM EDT CASE: [id number] PATIENT: ADAL THORNE Date: 1950 Sex: Male [facility] Department of Pathology [address] [place] [address] CLIA License No.: [id number] Salesperson Floor Coverings: Ariane Lawson MD, PhD Resident: Oleg Dowling M.D., Ph.D. Pathologist: Seng Jimenes M.D., Ph.D. CLINICAL DATA: Clinical Diagnosis: TEST ORDERED: Serum protein electrophoresis professional interpretation - [facility] 1 Serum immunofixation electrophoresis professional interpretation - [facility] RESULT: Reference range Total Protein 6.7 g/dl 6.4 - 8.3 g/dL Albumin 4.04 g/dl 3.20 - 5.30 g/dL Alpha 1 0.21 g/dl 0.10 - 0.40 g/dL Alpha 2 1.05 g/dl (HI) 0.50 - 1.00 g/dL Beta 0.94 g/dl 0.60 - 1.20 g/dL Gamma 0.46 g/dl (LO) 0.80 - 1.70 g/dL [place] 6.1 mg/L 3.3 - 19.4 mg/L Lambda 4.5 mg/L (LO) 5.7 - 26.3 mg/L [place]/Lambda 1.36 0.26 - 1.65 IgG 279 mg/dL (LO) 700 - 1600 mg/dL IgA 28 mg/dL (LO) 70 - 400 mg/dL IgM 24 mg/dL (LO) 40 - 230 mg/dL MOST RECENT PRIOR SERUM ELECTROPHORESIS RESULTS: Date Beta Gamma [place] Lambda K/L IgG IgA IgM MSp1 MSp2 [...] ORDERABLES Final R esult Performing Organization Address City/State/[facility] Co de Phone Number [facility] [address] [place] [address] * Cytogenetics (06/14/2025 12:00 AM EDT) Results Not Performed [facility] Metaphases Counted N/A ANALYZED: N/A SCORED: N/A BANDING: FISH [facility] Results\Interp retation Insufficient plasma cells (<0.2% by flow) were available from this specimen and therefore CD138 enrichment was not attempted and myeloma FISH studies not completed. [facility] Indication for Test High risk [facility] Procedure Comments ProcTissue Culture, Bone Marrow, leukemic blood Slide for Chromosome Analysis (2KT) Slide for Chromosome Analysis (2KT) [facility] Report Accession No: [id number] Date: 1950 Sex: Male [facility] Department of Pathology [address] [place], [place] [address]IA License No.: [id number] Salesperson Floor Coverings: Jackie Pascual, PhD, [facility] Physician: CHRISTIE DOWNING MD Specimen Submitted: cg-Bone Marrow ~SP_Collection_d ate Assistant Food Service Director: Arthur Novak Ph.D. RESULTS: Not Performed METAPHASES [...] on Saturday June 14, 2025 at 05:46:23PM [facility] Conversion Type (Other) 06/14/2025 06/14/2025 us Christie Downing MD PATHOLOGY ORDERABLES Edited Result - Final [facility] * Hepatitis C Antibody with Reflex to HCV, RNA quantitative Real-Time PCR (07/04/2022 11:50 AM EDT) HCV Ab Negative Negative [facility] [address] Comment: (NOTE) Bgmyce-io-qkyrki ratio is <1.00. Blood 07/04/2022 11:5 0 AM EDT 07/04/2022 11:55 AM EDT Christie Downing MD LAB BLOOD ORDERABLES Final R esult [facility] [address] [place] [address] * (ABNORMAL) Lipid panel (01/28/2019 10:12 AM EDT) CHOLESTEROL 231(H) <200 mg/dL [facility] LIC# [id number] TRIGLYCERIDES 66 35 - 150 mg/dL [facility] LIC# [id number] HDL 63(H) 40 - 60 mg/dL [facility] LIC# [id number] CALCULATED LDL 155(H) 50 - 129 mg/dL [facility] LIC# [id number] VLDL 13 mg/dL [facility] LIC# [id number] CARDIAC RISK RATIO 3.7 0 - 5 D [facility] LIC# [id number] 01/28/2019 10:1 2 AM EDT 01/28/2019 10:18 AM EDT Christie Downing MD LAB BLOOD ORDERABLES Final R esult [facility] LIC# [id number] [address] [place] [address] from Last 3 Months or Most Recently Relevant to Health Maintenance Insurance MEDIC[facility] PART A & [facility] [employer] MEDICARE SUPPLEMENT MEDICARE PART A & [facility] [employer] MEDICARE SUPPLEMENT MEDICARE PART A & B [facility] EXTENSION MEDICARE SUPPLEMENT MEDICARE PART A & B [facility] EXTENSION MEDICARE SUPPLEMENT MEDICARE PART A & [facility] EXTENSION MEDICARE SUPPLEMENT MEDICARE PART A & B [facility] MEDICARE SUPPLEMENT MEDICARE PART A & [facility] [employer] MEDICARE SUPPLEMENT MEDICARE PART A & B [facility] [employer] MEDICARE SUPPLEMENT MEDICARE PART A & B [facility] MEDICARE SUPPLEMENT MEDICARE PART A & B [facility] [employer] MEDICARE SUPPLEMENT MEDICARE PART A & B [facility] EXTENSION MEDICARE SUPPLEMENT Advance Directives For more information, please contact: [phone] (9AM - 5PM Jacki/[facility], Thursday-Thursday) Documents on File Type Date Recorded Patient Home Aide Expl anation Healthcare Proxy 12/27/2019 1:45 PM * Full Code (Latest Code Status on File) Date Activated Date Inactivated Comments 07/28/2022 5:06 PM Question Answer Comments Code Status Confirmed With: Patient Care Teams Pig Handler Relationship Specialty Start Date End Date Jeb Velázquez DO [address] [facility] [place] [address] PCP - General Family Medicine 04/22/23 Christie Downing MD [address] [place] [address] [email or web address] Primary Oncologist Medical Oncology 06/29/18 Elham Jaimes RN [address] [place] [phone] [email or web address] Associate Infusion Nurse 08/12/22 Mariann Morris, KWAME [address] [place] [address] [email or web address] RN 12/09/22 Julianne Bunn, KWAME [address] [place] [address] [email or web address] Research RN 01/26/23 Cristin Ramsey RN [address] [place] [id number] [email or web address] Primary Infusion Nurse 12/16/23 Elham Boyce, KWAME [address] [place] [address] [email or web address] Primary Infusion Nurse 06/26/24 Meghan DíazKWAME [address] [place] [id number] [email or web address] Associate Infusion Nurse 06/26/24 Марина Maxwell, KWAME [address] [place] [id number] [email or web address] Infusion Nurse 06/26/24 Additional Source Comments The information contained in this document represents components of the legal health record. It is not the complete legal health record.[facility]
== END 2025-07-20 10:47 | disposition home or self-care (01) ==
LOC: HO.HKAS 10:11
PROVIDERS: PCP Internal Medicine; Visit Provider Internal Medicine Nephrology
DX: I12.9 Hypertensive chronic kidney disease with stage 1 through stage 4 chronic kidney disease, or unspecified chronic kidney disease (principal); N18.2 Chronic kidney disease, stage 2 (mild)
CPT/HCPCS: 99214

== ENCOUNTER → 2025-07-20 10:10 | Outpatient (BNVA) | payer MEDICARE, OTHER, SELFPAY | PROVIDERS: PCP Internal Medicine; Visit Provider Internal Medicine Nephrology | DX: I12.9 Hypertensive chronic kidney disease with stage 1 through stage 4 chronic kidney disease, or unspecified chronic kidney disease (principal); N18.2 Chronic kidney disease, stage 2 (mild) | CPT/HCPCS: 99212 ==